=== PATIENT | female | born 1965 | race Caucasian/White ===

== ENCOUNTER 2016-12-26 09:52 | Inpatient (IN) ==
[2016-12-26 13:31] LABS: Basophils # 0.1 K/mcL (0.0-0.2); Basophils % 1.3 %; Eosinophils # 0.1 K/mcL (0.0-0.6); Eosinophils % 2.3 %; Hematocrit 25.1 % (35.3-44.9); Hemoglobin 7.9 g/dL (11.5-15.4); Immature Granulocytes % 1.3 % (0-4); Lymphocytes # 0.5 K/mcL (0.6-4.6); Lymphocytes % 12.9 %; Mean Corpuscular HGB Conc 31.5 g/dL (31.6-35.5); Mean Corpuscular Hemoglobin 35.7 pg (28.0-33.3); Mean Corpuscular Volume 113.6 fL (83.0-100.0); Mean Platelet Volume 11.6 fL (9.4-12.4); Monocytes # 0.3 K/mcL (0.0-1.3); Monocytes % 6.6 %; Platelet Count 168 K/mcL (140-400); Red Blood Count 2.21 M/mcL (3.82-4.97); Red Cell Distribution Width 17.7 % (11.5-14.5); Segmented Neutrophils % 75.6 %
[2016-12-26 13:43] LABS: Albumin 2.6 g/dL (3.5-5.0); Albumin/Globulin Ratio 0.5 (1.1-2.2); Bilirubin,Total 0.3 mg/dL (0.2-1.2); Calcium 8.4 mg/dL (8.6-10.8); Globulin 5.3 g/dL (2.4-3.5); Potassium 5.3 mEq/L (3.5-4.5); Total Protein 7.9 g/dL (6.0-8.3)
[2016-12-26 14:32] LABS: Basophilic Stippling 1+ (Not Present); Large Platelets Present (Not Present); Macrocytosis Present (Not Present); Platelet Estimate Normal (Normal)
[2016-12-26] MEDS ORDERED: Levofloxacin 750 MG/150 ML 750 MG/150 ML BAG IVPB ONE (18:51)
--- NOTE | 2016-12-26 21:16 | Emergency Department Note ---
Disposition Clinical Impression: Anemia Qualifiers: Anemia type: unspecified type Qualified Code(s): D64.9 - Anemia, unspecified Disposition: Admitted As Inpatient Referrals: Yesenia Parra MD [Primary Care Provider] - Forms: Work/School Release, ED Satisfaction Letter Time of Disposition: 21:20 General Adult HPI - General Chief complaint: ED General Medical Stated complaint: multiple complaints Time Seen by Provider: 12/26/16 11:18 Source: patient, family Limitations: other Nursing Notes Reviewed: Yes Vital Signs Reviewed: Yes - History of Present Illness HPI Narrative: 51-year-old female who presents with a history of MRDD, ESRD from dialysis. Prior to dialysis her hemoglobin was checked and she was found to be anemic. Dialysis reports her baseline hemoglobin is 10. Dialysis reports that she has had diarrhea, vomiting. No episodes of vomiting or diarrhea were noted here. Her vital signs are stable on arrival. Additionally was reported that she had hypotension at dialysis which subsequently resolved prior to arrival here today. Her mother reports no recent illness, sick or ill contacts, pain of any sort. They do report that her right jaw has been slightly more swollen than it is at baseline. Pain Scale: 0 - Related Data Home Medications Medication Instructions Recorded Confirmed Atorvastatin [Lipitor] 40 mg PO HS 08/09/15 12/26/16 B Complex W-C No.20/Folic Acid 1 mg PO DAILY 08/09/15 12/26/16 [Nephrocaps Softgel] L. Acidophilus/Pectin, [place] 1 each PO DAILY 08/09/15 12/26/16 [Acidophilus Probiotic Capsule] Levothyroxine [Synthroid] 100 mcg PO DAILY 08/09/15 12/26/16 Megestrol Acetate [Megace] 40 mg PO BID 08/09/15 08/09/15 Metoprolol XL (24 HR) Succ [Toprol 50 mg PO DAILY 08/09/15 12/26/16 XL] Omeprazole [PriLOSEC] 20 mg PO DAILY 08/09/15 12/26/16 Oxygen 2 l NS AD 08/09/15 12/26/16 Sevelamer HCl [Renagel] 800 mg PO TID 08/09/15 12/26/16 Sulfamethoxazole/Trimeth DS 1 each PO DAILY 08/09/15 12/26/16 [Bactrim Ds] Aspirin 81 mg PO DAILY 12/26/16 12/26/16 Diltiazem HCl 90 mg PO TID 12/26/16 12/26/16 Allergies Allergy/AdvReac Type Severity Reaction Status Date / Time No Known Allergies Allergy Verified 08/02/15 11:30 All systems ED: reviewed and negative except as stated. Past Medical History - Past Medical History Medical history: Reports: GERD Psychiatric history: Reports: other - Social History Smoking Status: Never smoker Smokeless Tobacco Status: No Alcohol use: Reports: none Drug use: Reports: none Physical Exam Alert, smiles with conversation TMs are clear bilaterally and extraocular muscle movements are normal mucous members are moist there is some prominence to the right submandibular region Lungs are clear but diminished bilaterally There is a holosystolic murmur present Abdomen is soft and nontender Extremities are well-perfused Patient has no focal neurological deficit - General Limitations: other General appearance: alert, in no apparent distress Course Vital Signs Temperature 97.6 F 12/26/16 09:54 Pulse Rate 93 12/26/16 09:54 Respiratory Rate 14 12/26/16 09:54 Blood Pressure 164/82 12/26/16 09:54 O2 Sat by Pulse Oximetry 95 12/26/16 09:54 Temperature 97.6 F 12/26/16 09:54 Pulse Rate 105 12/26/16 20:00 Respiratory Rate 16 12/26/16 20:00 Blood Pressure 161/88 12/26/16 20:00 O2 Sat by Pulse Oximetry 95 12/26/16 20:00 Oxygen Delivery Oxygen Delivery Nasal Cannula Medical Decision Making - [facility] Narrative Medical decision making narrative: 51-year-old female with concerning findings of reported hypotension at dialysis. I did discuss the case with the on-call insemination worker who recommended the patient be admitted for anemia, need for dialysis, hyperkalemia. Mildly hyperkalemic here in the department. Vital signs were stable here. She does have evidence on CT of left lower lobe infiltrate. There is no evidence of sepsis at this time. I would initiate therapy with Levaquin given her reported hypotension. This can be discontinued at the discretion of the hospitalist team. Additionally I will consult the dialysis for evaluation the patient's dialysis needs. The patient will be admitted for dialysis, evaluation of hyperkalemia, reported hypotension, findings of colitis on CT. Admitted in stable condition, discussed case with Dr. Rock with the hospitalist team.Guiac negative. - Lab Data Result diagrams: 12/26/16 13:00 12/26/16 13:00 Lab Results 12/26/16 12/26/16 12/26/16 Range/Units 13:00 13:00 14:20 WBC 4.0 L (4.3-11.1) K/mcL RBC 2.21 L (3.82-4.97) M/mcL Hgb 7.9 L (11.5-15.4) g/dL Hct 25.1 L (35.3-44.9) % MCV 113.6 H (83.0-100.0) fL MCH 35.7 H (28.0-33.3) pg MCHC 31.5 L (31.6-35.5) g/dL RDW 17.7 H (11.5-14.5) % Plt Count 168 (140-400) K/mcL MPV 11.6 (9.4-12.4) fL Immature Gran % 1.3 (0-4) % Seg Neutrophils % 75.6 % Lymphocytes % 12.9 % Monocytes % 6.6 % Eosinophils % 2.3 % Basophils % 1.3 % Neutrophils # 3.0 (1.6-8.9) K/mcL Lymphocytes # 0.5 L (0.6-4.6) K/mcL Monocytes # 0.3 (0.0-1.3) K/mcL Eosinophils # 0.1 (0.0-0.6) K/mcL Basophils # 0.1 (0.0-0.2) K/mcL Platelet Estimate Normal (Normal) Large Platelets Present A (Not Present) Basophilic Stippling 1+ A (Not Present) Macrocytosis Present A (Not Present) Sodium 141 (136-145) mEq/L Potassium 5.3 H (3.5-4.5) mEq/L Chloride 103 (98-109) mEq/L Carbon Dioxide 28 (19-29) mEq/L BUN 52 H (7-20) mg/dL Creatinine 5.72 H (0.57-1.11) mg/dL Est GFR ( Amer) 10 L (> 60) Est GFR (Non-Af Amer) 8 L (> 60) BUN/Creatinine Ratio 9 (6-26) Glucose 88 (70-99) mg/dL Calculated Osmolality 305 H (280-300) Lactic Acid (0.5-2.2) mmol/L Calcium 8.4 L (8.6-10.8) mg/dL Total Bilirubin 0.3 (0.2-1.2) mg/dL AST 18 (5-34) Units/L ALT 9 (0-55) Units/L Alkaline Phosphatase 82 (38-126) Units/L Serum Total Protein 7.9 (6.0-8.3) g/dL Albumin 2.6 L (3.5-5.0) g/dL Globulin 5.3 H (2.4-3.5) g/dL Albumin/Globulin Ratio 0.5 L (1.1-2.2) Stool Occult Blood Negative (Negative) Blood Type Antibody Screen 12/26/16 12/26/16 Range/Units 17:20 17:20 WBC (4.3-11.1) K/mcL RBC (3.82-4.97) M/mcL Hgb (11.5-15.4) g/dL Hct (35.3-44.9) % MCV (83.0-100.0) fL MCH (28.0-33.3) pg MCHC (31.6-35.5) g/dL RDW (11.5-14.5) % Plt Count (140-400) K/mcL MPV (9.4-12.4) fL Immature Gran % (0-4) % Seg Neutrophils % % Lymphocytes % % Monocytes % % Eosinophils % % Basophils % % Neutrophils # (1.6-8.9) K/mcL Lymphocytes # (0.6-4.6) K/mcL Monocytes # (0.0-1.3) K/mcL Eosinophils # (0.0-0.6) K/mcL Basophils # (0.0-0.2) K/mcL Platelet Estimate (Normal) Large Platelets (Not Present) Basophilic Stippling (Not Present) Macrocytosis (Not Present) Sodium (136-145) mEq/L Potassium (3.5-4.5) mEq/L Chloride (98-109) mEq/L Carbon Dioxide (19-29) mEq/L BUN (7-20) mg/dL Creatinine (0.57-1.11) mg/dL Est GFR ( Amer) (> 60) Est GFR (Non-Af Amer) (> 60) BUN/Creatinine Ratio (6-26) Glucose (70-99) mg/dL Calculated Osmolality (280-300) Lactic Acid 0.6 (0.5-2.2) mmol/L Calcium (8.6-10.8) mg/dL Total Bilirubin (0.2-1.2) mg/dL AST (5-34) Units/L ALT (0-55) Units/L Alkaline Phosphatase (38-126) Units/L Serum Total Protein (6.0-8.3) g/dL Albumin (3.5-5.0) g/dL Globulin (2.4-3.5) g/dL Albumin/Globulin Ratio (1.1-2.2) Stool Occult Blood (Negative) Blood Type A POSITIVE Antibody Screen NEGATIVE
[2016-12-26] MEDS ORDERED: Naloxone 0.4 MG/ML INJ IVP PRN (23:36)
[2016-12-26] MEDS ORDERED: Acetaminophen 325 MG TABLET PO PRN (23:36)
[2016-12-26] MEDS ORDERED: Ondansetron 4 MG/2 ML VIAL IVP PRN (23:36)
[2016-12-26] MEDS ORDERED: *HR* OxyCODONE Immed Rel 5 MG TABLET PO PRN (23:36)
[2016-12-26] MEDS ORDERED: *HR* Morphine 2 MG/ML SYRINGE IVP PRN (23:36)
[2016-12-26] MEDS ORDERED: NON-FORMULARY MEDICATION 1 EACH EACH (Oxygen [Oxygen] 2 L) NS SCH (23:45)
--- NOTE | 2016-12-26 23:49 | Internal Med History&Physical ---
Date of Encounter: 12/26/16 Time of Encounter: 23:30 Assessment and Plan (1) ESRD (end stage renal disease) on dialysis Status: Chronic . (2) Hypertensive CKD, ESRD on dialysis Status: Chronic . (3) Anemia in chronic kidney disease (CKD) Status: Chronic . 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 (5) Cognitive and neurobehavioral dysfunction Status: Chronic . (6) Hyperkalemia, diminished renal excretion Status: Acute . (7) Hyperosmolality Status: Acute . (8) Hypoalbuminemia due to protein-calorie malnutrition Status: Chronic . (9) Vitamin deficiency Status: Chronic . (10) Iron deficiency Status: Chronic . Internal Medicine - H&P: HPI Chief complaint: Nausea vomiting diarrhea Admitted From: Emergency Dept Plans for Post Hospital Care: Home History of present illness: Ms. Sams is a 51 year old female history significant for Down's syndrome/ MRDD, ESRD HD dependent, P atrial fib, hypertension, dyslipidemia, GERD, hypothyroidism, Traci's c-ANCA vasulitis, chronic interstitial lung dis, chronic respiratory failure oxygen dependent, anemia of chronic disease, H/O C- diff colitis, nonsmoker The patient was visited and interviewed and examined. The patient is admitted to [facility] via the emergency department which presents in the company of family with concerns pertaining to a low hemoglobin measurement found prior to scheduled dialysis run. Patient has end-stage renal disease and receives hemodialysis 3 times weekly. Her baseline hemoglobin was reportedly at 10 prior to today's evaluation. Reported to be at 7.9. The patient had been experiencing episodes of diarrhea and nausea vomiting as well as transient hypotension while on dialysis which resolved prior to arrival in the ED as stated symptoms of enteritis. Mother reported no recent travel or sick or ill contacts. Patient denied any pain or concerns family did nothing to attention apparent swelling about the right jaw area which was new. Which related to a prominence of the right submandibular region. Findings in the ED: Vital signs temperature 97.6 pulse 93-105 respiration 14-16 BP 160-164/82-88. O2 saturation pulse oximetry 95% on 2 L per nasal cannula. WBC 4.0 hemoglobin 7.9 hematocrit 25.1. MCV 113.6 MCH 35.7. RDW 17.7. Platelets 169 pounds. Differential normal. Metabolic panel notes potassium 5.3 BUN 52 creatinine 5.72 GFR 8. Glucose 88, osmolality 305. Calcium 8.4. Hepatic function normal. Albumin 2.6 total 7.9. Lactic acid 0.6. CT soft tissue neck no obvious neck mass detected. Bilateral mastoid effusion with opacification of the right middle ear seen. Opacification of the left maxillary antrum. Groundglass infiltrates within both lung apices with partially visualized left lower lobe consolidation. Chronic superior endplate fracture C4 with a 4 mm anterolisthesis of C3 on C4. Generalized anasarca. Degenerative changes of the spine. CT of abdomen and pelvis demonstrated findings suggestive of pulmonary edema. Small pleural effusions with lower lobe atelectasis. Mild circumferential wall thickening of the cecum. Possible underdistention versus mild colitis. Small ascites. Severe bilateral renal atrophy. Normal appendix. No dilated loops of bowel. No bowel obstruction. Small amount of pelvic ascites. No pelvic masses adenopathy or fluid collection. Retroperitoneum benign. Soft and osseous structures tissues benign. Preliminary impression suggests presence of the cytopenia with a leukopenia and macrocytic hyperchromic anemia. There is no record of any obvious bleeding events. Hemoccult stool reportedly negative. An etiology has yet to be elucidated beyond the chronic disease due to end-stage renal disease and her history of poor oral intake may portend to a nutritional component as well.. Chemistries demonstrated end-stage renal disease stage V which is hemodialysis dependent but in spite of today's dialysis potassium returned elevated at 5.3. CT of the neck does disclose evidence for bilateral mastoiditis, right otitis media, left maxillary sinusitis and left lower lobe community-acquired pneumonitis. CT abdomen and pelvis suggests mild colitis of the cecum and the patient does have a prior history of C. difficile colitis concerns. Given current findings and patient's significant comorbidities she is at further risk for acute decline and morbidity with this presentation. Workup and treatment will proceed comprehensively. Cumulative laboratory and radiographic data base was reviewed, considered and discussed. Pertinent ancillary medical records including ECW and PCI documentation was reviewed and considered. Given the patient's presenting concerns, past medical history, clinical findings and symptoms, she is admitted at this time will undergo further evaluation and disposition. Orders were written as per the computerized physician border inspector system.......................................................................... .................... Consultative opinions will be sought as clinical circumstances justify. Initial consultative request submitted to dialysis services/nephrology and gastroenterology. Pain management needs will be addressed. Laboratory and radiographic data base will be updated as appropriate. Studies include: Cultures blood urine and sputum, c diff toxin, stool c/s, cardiac injury panel, BNP, CPK, cortisol, UA, metabolic and hematologic panel, magnesium, phosphorus, ionized calcium, thyroid panel, lipid profile, A1c, C-pep , CRP, sed rate, respiratory infection profile, respiratory virus panel, blood gas, lactic acid, iron studies, B12, MMA, folate, ferritin, hemoccult, PT/INR/ APTT, type/screen, serologies, etc. Precautions: Aspiration, fall, delirium protocol/surveillance initiated. Telemetry with continuous hemodynamic monitoring and pulse oximetry initiated. Orthostatic vital signs. Empiric antibiotic coverage: Intravenous Zosyn and Levaquin pending culture data. Transfusion: 2 units packed red blood cells. Goal to maintain a hemoglobin of greater than 8.5. Special studies: CT chest/abd-pelvis/soft tissue neck, chest x-ray, telemetry, EKG,echocardiogram. Pulmonary toilet: Incentive spirometry, aerosol bronchodilator, mucolytic, antitussive, supplemental oxygen. Corticosteroid therapyPRN. CPAP/BiPAP supplemental oxygen delivery. Aerosol Mucomyst therapy. Fluid and electrolyte repletion efforts will proceed. Careful attention to fluid balance and renal recovery will be emphasized. Avoidance of nephrotoxic exposure and adverse drug drug interaction in the setting of impaired renal function will be monitored closely. Acute coronary syndrome protocol/surveillance initiated. DVT and PUD prophylaxis initiated: PPI therapy, intermittent pneumatic cuffs/ TEDs. Subcutaneous heparin/Lovenox was held due to acute blood loss anemia. Early ambulation will be encouraged. Immunization updates recommended. Influenza and pneumococcal vaccinations as part of ongoing preventative healthcare recommendations strongly recommended. Smoking cessation counseling briefly addressed. Patient is a nonsmoker. Advanced care directive discussion briefly addressed. Patient does not declare any healthcare restrictions at this time. Cardiovascular risk appraisal and cardiovascular risk reduction efforts will be emphasized. Physical and occupational therapy may be consulted to evaluate patient's functional capacity and progress mobility if her circumstances justify. Nutrition/dietary education counseling may be considered as circumstances justify. Renal diet. Supplemental diet options. Outpatient medication schedules will be reviewed, confirmed and facilitated as appropriate. Reconciliation of home treatments including adjustments, substitutions and reintroduction into the treatment regimen will address necessary maintenance therapies for chronic pre-existing medical conditions. Plan of care has been reviewed and discussed in detail with the patient. Questions addressed. Hospital course will be dependent upon clinical findings, treatment response and potential consultative interventions. Patient is at risk for further acute clinical decline and morbidity due to her presenting chief complaints, findings and comorbid conditions. Condition is serious. Prognosis is guarded. CODE STATUS is full. Past Med Surg Social Fam HX - Past Medical History Source: old records reviewed Medical history: arthritis, atrial fibrillation, COPD, dialysis, GERD, hyperlipidemia, hypertension, osteoporosis, renal disease, thyroid disease, other Psychiatric history: other - Past Surgical History Surgical History: sinus surgery (Ear surgery. Tonsillectomy adenoidectomy.), other, vascular surgery (Left upper arm AV fistula shunt creation. Left AV shunt thrombectomy and interposition graft revision. Left AV shunt thrombectomy.) - Social History Smoking Status: Never smoker Smokeless Tobacco Status: No Alcohol use: none Drug use: none Occupational status: disabled Current living situation: With Family Activity Level: Independent ambulation, Mostly sedentary Recent Out of Country Travel Within the Last 8 Weeks: No Exposure or Possible Exposure to Illness During Travel: No Internal Medicine - H&P: Meds Atorvastatin [Lipitor] 40 mg PO HS 08/09/15 [History] B Complex W-C No.20/Folic Acid [Nephrocaps Softgel] 1 mg PO DAILY 08/09/15 [ History] L. Acidophilus/Pectin, [place] [Acidophilus Probiotic Capsule] 1 each PO DAILY [History] Megestrol Acetate [Megace] 40 mg PO BID 08/09/15 [History] Metoprolol XL (24 HR) Succ [Toprol XL] 50 mg PO DAILY 08/09/15 [History] Omeprazole [PriLOSEC] 20 mg PO DAILY 08/09/15 [History] Oxygen 2 l NS AD 08/09/15 [History] Sevelamer HCl [Renagel] 800 mg PO TID 08/09/15 [History] Aspirin 81 mg PO DAILY 12/26/16 [History] Diltiazem HCl 90 mg PO TID 12/26/16 [History] Fluconazole [Diflucan] 200 mg PO DAILY #14 udc 12/30/16 [Rx] Levothyroxine [Synthroid] 125 mcg PO DAILY #30 tablet 12/30/16 [Rx] Allergies No Known Allergies Allergy (Verified 08/02/15 11:30) ROS unobtainable: due to mental status All Systems PM: A 10-system review of systems was performed and is negative for pertinent findings except as documented above in the HPI. - Constitutional Constitutional: as per HPI - EENT Eyes: as per HPI Ears: as per HPI Nose, mouth and throat: as per HPI - Cardiovascular Cardiovascular ROS IM: as per HPI - Respiratory Respiratory: as per HPI - Gastrointestinal Gastrointestinal: as per HPI - Genitourinary Genitourinary: as per HPI - Musculoskeletal Musculoskeletal ROS IM: as per HPI - Integumentary Integumentary IM: as per HPI - Neurological Neurological ROS: as per HPI - Psychiatric Psychiatric: as per HPI - Endocrine Endocrine IM: as per HPI - Hematologic/Lymphatic Hematologic/Lymphatic: as per HPI - Allergic/Immunologic Allergic/Immunologic: as per HPI - Constitutional Vitals: Temp Pulse Resp BP Pulse Ox 98.0 F 101 16 183/76 93 L 12/26/16 22:45 12/26/16 22:45 12/26/16 22:45 12/26/16 22:45 12/26/16 22:56 General appearance: Present: mild distress, A&O X 3, underweight, answers questions appropriately - Head Head exam: Present: atraumatic, normocephalic - Eye Eye exam: Present: EOMI, PERRL, conjuntiva pink, sclera anicteric Pupils: Present: normal accommodation, PERRL - ENT ENT exam: Present: mucous membranes moist, normal oropharynx - Neck Neck exam general surgery: Present: full ROM, supple, trachea midline. Absent: lymphadenopathy - Respiratory Respiratory exam: Present: decreased breath sounds, CTAB. Absent: accessory muscle use, rales, rhonchi, wheezes - Cardiovascular Cardiovascular exam: Present: distant heart sounds, RRR, +S1, +S2. Absent: diastolic murmur, gallop, rubs, systolic murmur - GI/Abdominal GI/Abdominal exam: Present: diminished bowel sounds, distended, soft, tenderness , no peritoneal signs - Extremities Exam Extremities exam: Present: full ROM, warm, radial pulses palpable and symetrical. Absent: calf tenderness, cyanotic, pedal edema - Neurological Exam Neurological exam: Present: alert, altered, CN II-XII intact, oriented X3, no focal deficits. Absent: pronater drift, facial droop, speech deficit - Psychiatric Psychiatric exam: Present: anxious, flat affect - Skin Skin exam: Present: dry, intact, warm. Absent: petechiae, rash, urticaria, vesicles Internal Med - H&P Results - Labs CBC & Chem 7: 12/30/16 05:57 12/29/16 06:17 - Impressions Vital Signs Temp Pulse Resp BP Pulse Ox 12/26/16 22:56 93 L 12/26/16 22:45 98.0 F 101 16 183/76 93 L 12/26/16 22:15 16 162/104 12/26/16 21:30 101 16 162/104 94 L 12/26/16 21:00 105 16 161/88 95 12/26/16 20:00 105 16 161/88 95 12/26/16 19:00 95 16 174/103 93 L 12/26/16 18:00 95 16 174/85 97 12/26/16 16:30 93 16 174/85 95 12/26/16 15:30 93 16 170/83 97 12/26/16 14:30 94 16 177/86 96 12/26/16 14:00 84 16 166/78 96 12/26/16 13:30 82 16 161/78 96 12/26/16 13:00 82 16 164/78 96 12/26/16 12:30 82 16 166/78 97 12/26/16 12:00 81 16 158/78 96 12/26/16 11:30 81 16 158/80 96 12/26/16 10:39 81 16 157/78 97 12/26/16 10:00 88 16 166/85 99 12/26/16 09:57 97 12/26/16 09:54 97.6 F 93 14 164/82 95 Intake and Output 12/26/16 12/26/16 12/26/16 07:59 15:59 23:59 Other: Weight 41.73 kg 42.3 kg Patient Weight 12/26/16 23:59 Weight 42.3 kg Short CBC 12/26/16 Range/Units 13:00 WBC 4.0 L (4.3-11.1) K/mcL Hgb 7.9 L (11.5-15.4) g/dL Hct 25.1 L (35.3-44.9) % Plt Count 168 (140-400) K/mcL Neutrophils # 3.0 (1.6-8.9) K/mcL BMP 12/26/16 Range/Units 13:00 Sodium 141 (136-145) mEq/L Potassium 5.3 H (3.5-4.5) mEq/L Chloride 103 (98-109) mEq/L Carbon Dioxide 28 (19-29) mEq/L BUN 52 H (7-20) mg/dL Creatinine 5.72 H (0.57-1.11) mg/dL Glucose 88 (70-99) mg/dL Calcium 8.4 L (8.6-10.8) mg/dL Liver Function 12/26/16 Range/Units 13:00 Total Bilirubin 0.3 (0.2-1.2) mg/dL AST 18 (5-34) Units/L ALT 9 (0-55) Units/L Alkaline Phosphatase 82 (38-126) Units/L Albumin 2.6 L (3.5-5.0) g/dL Abnormal lab results WBC 4.0 K/mcL (4.3-11.1) L 12/26/16 13:00 RBC 2.21 M/mcL (3.82-4.97) L 12/26/16 13:00 Hgb 7.9 g/dL (11.5-15.4) L 12/26/16 13:00 Hct 25.1 % (35.3-44.9) L 12/26/16 13:00 MCV 113.6 fL (83.0-100.0) H 12/26/16 13:00 MCH 35.7 pg (28.0-33.3) H 12/26/16 13:00 MCHC 31.5 g/dL (31.6-35.5) L 12/26/16 13:00 RDW 17.7 % (11.5-14.5) H 12/26/16 13:00 Lymphocytes # 0.5 K/mcL (0.6-4.6) L 12/26/16 13:00 Large Platelets Present (Not Present) A 12/26/16 13:00 Basophilic Stippling 1+ (Not Present) A 12/26/16 13:00 Macrocytosis Present (Not Present) A 12/26/16 13:00 Potassium 5.3 mEq/L (3.5-4.5) H 12/26/16 13:00 BUN 52 mg/dL (7-20) H 12/26/16 13:00 Creatinine 5.72 mg/dL (0.57-1.11) H 12/26/16 13:00 Est GFR ( Amer) 10 (> 60) L 12/26/16 13:00 Est GFR (Non-Af Amer) 8 (> 60) L 12/26/16 13:00 Calculated Osmolality 305 (280-300) H 12/26/16 13:00 Calcium 8.4 mg/dL (8.6-10.8) L 12/26/16 13:00 Albumin 2.6 g/dL (3.5-5.0) L 12/26/16 13:00 Globulin 5.3 g/dL (2.4-3.5) H 12/26/16 13:00 Albumin/Globulin Ratio 0.5 (1.1-2.2) L 12/26/16 13:00 Allergies Allergy/AdvReac Type Severity Reaction Status Date / Time No Known Allergies Allergy Verified 08/02/15 11:30 Laboratory Results WBC 4.0 K/mcL (4.3-11.1) L 12/26/16 13:00 RBC 2.21 M/mcL (3.82-4.97) L 12/26/16 13:00 Hgb 7.9 g/dL (11.5-15.4) L 12/26/16 13:00 Hct 25.1 % (35.3-44.9) L 12/26/16 13:00 MCV 113.6 fL (83.0-100.0) H 12/26/16 13:00 MCH 35.7 pg (28.0-33.3) H 12/26/16 13:00 MCHC 31.5 g/dL (31.6-35.5) L 12/26/16 13:00 RDW 17.7 % (11.5-14.5) H 12/26/16 13:00 Plt Count 168 K/mcL (140-400) 12/26/16 13:00 MPV 11.6 fL (9.4-12.4) 12/26/16 13:00 Immature Gran % 1.3 % (0-4) 12/26/16 13:00 Seg Neutrophils % 75.6 % 12/26/16 13:00 Lymphocytes % 12.9 % 12/26/16 13:00 Monocytes % 6.6 % 12/26/16 13:00 Eosinophils % 2.3 % 12/26/16 13:00 Basophils % 1.3 % 12/26/16 13:00 Neutrophils # 3.0 K/mcL (1.6-8.9) 12/26/16 13:00 Lymphocytes # 0.5 K/mcL (0.6-4.6) L 12/26/16 13:00 Monocytes # 0.3 K/mcL (0.0-1.3) 12/26/16 13:00 Eosinophils # 0.1 K/mcL (0.0-0.6) 12/26/16 13:00 Basophils # 0.1 K/mcL (0.0-0.2) 12/26/16 13:00 Platelet Estimate Normal (Normal) 12/26/16 13:00 Large Platelets Present (Not Present) A 12/26/16 13:00 Basophilic Stippling 1+ (Not Present) A 12/26/16 13:00 Macrocytosis Present (Not Present) A 12/26/16 13:00 Sodium 141 mEq/L (136-145) 12/26/16 13:00 Potassium 5.3 mEq/L (3.5-4.5) H 12/26/16 13:00 Chloride 103 mEq/L (98-109) 12/26/16 13:00 Carbon Dioxide 28 mEq/L (19-29) 12/26/16 13:00 BUN 52 mg/dL (7-20) H 12/26/16 13:00 Creatinine 5.72 mg/dL (0.57-1.11) H 12/26/16 13:00 Est GFR ( Amer) 10 (> 60) L 12/26/16 13:00 Est GFR (Non-Af Amer) 8 (> 60) L 12/26/16 13:00 BUN/Creatinine Ratio 9 (6-26) 12/26/16 13:00 Glucose 88 mg/dL (70-99) 12/26/16 13:00 Calculated Osmolality 305 (280-300) H 12/26/16 13:00 Lactic Acid 0.6 mmol/L (0.5-2.2) 12/26/16 17:20 Calcium 8.4 mg/dL (8.6-10.8) L 12/26/16 13:00 Total Bilirubin 0.3 mg/dL (0.2-1.2) 12/26/16 13:00 AST 18 Units/L (5-34) 12/26/16 13:00 ALT 9 Units/L (0-55) 12/26/16 13:00 Alkaline Phosphatase 82 Units/L (38-126) 12/26/16 13:00 Serum Total Protein 7.9 g/dL (6.0-8.3) 12/26/16 13:00 Albumin 2.6 g/dL (3.5-5.0) L 12/26/16 13:00 Globulin 5.3 g/dL (2.4-3.5) H 12/26/16 13:00 Albumin/Globulin Ratio 0.5 (1.1-2.2) L 12/26/16 13:00 Stool Occult Blood Negative (Negative) 12/26/16 14:20 Blood Type A POSITIVE 12/26/16 17:20 Antibody Screen NEGATIVE 12/26/16 17:20 Impressions Abdomen/Pelvis CT 12/26/16 16:24 IMPRESSION: 1. Findings suggesting pulmonary edema. Small pleural effusions with lower lobe atelectasis. 2. Mild circumferential wall thickening in the cecum. This could be due to underdistention or mild colitis. Follow-up should be considered. 3. Small amount of ascites. D/ / 12/26/2016 18:39:45 Garry Sharma MD / [email or web address] Interpreting Provider: Garry Sharma MD Soft Tissue Neck CT 12/26/16 16:24 IMPRESSION: Motion limited exam. No obvious neck mass detected. Bilateral mastoid effusions and opacification of the left middle ear. Ground-glass infiltrates within both lung bases with a partially visualized left lower lobe consolidation. Chronic superior endplate fracture of C4 with 4 mm anterolisthesis of C3 on C4. D/ / Rudy Lincoln MD / Rudy Lincoln MD Interpreting Provider: Rudy Lincoln MD
[2016-12-26] MEDS ORDERED: Albuterol 2.5 MG/3 ML NEBULIZER IH PRN (23:55)
[2016-12-27] MEDS: Piperacillin/Tazobactam 3.375 GM in D5% in Water (Mini-Bag+) 100 ML IVPB SCH ×3 (00:22→23:30)
[2016-12-27] MEDS: Ipratropium/Albuterol Neb 3 ML IH SCH ×4 (04:39→22:33)
[2016-12-27 06:31] LABS: Hematocrit 25.2 % (35.3-44.9); Hemoglobin 7.9 g/dL (11.5-15.4); Mean Corpuscular HGB Conc 31.3 g/dL (31.6-35.5); Mean Corpuscular Hemoglobin 36.2 pg (28.0-33.3); Mean Corpuscular Volume 115.6 fL (83.0-100.0); Mean Platelet Volume 11.4 fL (9.4-12.4); Platelet Count 161 K/mcL (140-400); Red Blood Count 2.18 M/mcL (3.82-4.97)
[2016-12-27 06:45] LABS: Albumin 2.6 g/dL (3.5-5.0); Albumin/Globulin Ratio 0.5 (1.1-2.2); Bilirubin,Total 0.3 mg/dL (0.2-1.2); Calcium 8.6 mg/dL (8.6-10.8); Globulin 5.2 g/dL (2.4-3.5); Phosphorous 4.5 mg/dL (2.3-4.7); Potassium 5.7 mEq/L (3.5-4.5); Total Protein 7.8 g/dL (6.0-8.3)
[2016-12-27 06:55] LABS: Estimated Average Glucose < 68 mg/dl; Hemoglobin A1C <= 3.9 %
[2016-12-27 07:09] LABS: Thyroid Stimulating Hormone 35.703 mcIU/mL (0.350-4.840)
[2016-12-27] MEDS: Aspirin 81 MG TAB.CHEW PO SCH (08:10)
[2016-12-27] MEDS: Metoprolol XL (24 HR) Succ 50 MG TAB.ER.24H PO SCH (08:11)
[2016-12-27] MEDS: Lactobacillus 1 EACH CAP.SPRINK PO SCH (08:11)
[2016-12-27] MEDS: Renal Vitamin 1 MG CAPSULE PO SCH (08:11)
[2016-12-27] MEDS: *HR* Promethazine 25 MG/ML VIAL IVP PRN (08:12)
[2016-12-27] MEDS: SEVELAMER HCL 800 MG PO SCH ×3 (08:34→21:17)
[2016-12-27] MEDS ORDERED: Sulfamethoxazole/Trimeth DS 1 EACH TABLET PO SCH (09:00)
--- NOTE | 2016-12-27 09:14 | Internal Med Progress Note ---
Date of Encounter: 12/27/16 Time of Encounter: 08:25 - Assessment and plan (1) Colitis, acute Current Visit: Yes Status: Suspected Assessment and plan: Patient has findings suggestive of mild colitis in the cecal region per CT scan. No leukocytosis. Patient does have some mild abdominal pain. No diarrhea or constipation. For now continue antibiotics. Consider repeat CT scan tomorrow. (2) Anemia in chronic kidney disease (CKD) Current Visit: Yes Status: Chronic Assessment and plan: Chronic from end-stage renal disease. Patient will receive erythropoietin with hemodialysis. Monitor blood counts. (3) ESRD (end stage renal disease) on dialysis Current Visit: Yes Status: Chronic Assessment and plan: Consulted nephrology. 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 Complains of some mild abdominal pain. No constipation. Not having chest pain at this time. No shortness of breath. - Constitutional Vitals: Temp Pulse Resp BP Pulse Ox 98.2 F 100 16 132/82 91 L 12/27/16 07:46 12/27/16 07:46 12/27/16 07:46 12/27/16 07:46 12/27/16 07:46 General appearance: Present: cooperative, A&O X 2, pleasant, answers questions appropriately - Respiratory Respiratory exam: Present: CTAB. Absent: accessory muscle use, rales, rhonchi, wheezes - Cardiovascular Cardiovascular exam: Present: RRR, +S1, +S2. Absent: diastolic murmur, gallop, rubs, systolic murmur - GI/Abdominal GI/Abdominal exam: Present: normal bowel sounds, soft, tenderness (Mild right lower quadrant), no peritoneal signs. Absent: distended - Extremities Exam Extremities exam: Present: warm, radial pulses palpable and symetrical. Absent : calf tenderness, cyanotic, pedal edema - Neurological Exam Neurological exam: Present: alert, CN II-XII intact, no focal deficits. Absent : facial droop, speech deficit - Skin Skin exam: Present: dry, intact Internal Medicine: Result - Labs CBC & Chem 7: 12/27/16 06:10 12/27/16 06:10 Labs: Short CBC 12/27/16 Range/Units 06:10 WBC 4.4 (4.3-11.1) K/mcL Hgb 7.9 L (11.5-15.4) g/dL Hct 25.2 L (35.3-44.9) % Plt Count 161 (140-400) K/mcL BMP 12/27/16 06:10 Sodium 138 Potassium 5.7 H Chloride 102 Carbon Dioxide 23 BUN 57 H Creatinine 6.60 H Glucose 77 Calcium 8.6 Liver Function 12/27/16 Range/Units 06:10 Total Bilirubin 0.3 (0.2-1.2) mg/dL AST 19 (5-34) Units/L ALT 11 (0-55) Units/L Alkaline Phosphatase 81 (38-126) Units/L Albumin 2.6 L (3.5-5.0) g/dL - VTE Documentation of Mechanical Device: Graduated compression elastic hosiery Consult Discharge Plan - Plan Referrals: Yesenia Parra MD [Primary Care Provider] - - Attending Attestation This document has been at least partially created by [email or web address] recognition technology by Dr. Suero. Errors in grammar, wording or other phrases may exist. If errors are found after the documentation is signed, they will be addressed individually in the addendum section of this document when appropriate.
--- NOTE | 2016-12-27 12:52 | Nephrology Consult Note ---
Date of Encounter: 12/27/16 Time of Encounter: 11:25 Assessment and Plan (1) ESRD (end stage renal disease) on dialysis Current Visit: Yes Status: Chronic LLL atalectasis, mild colitis. Guiac neg, Hgb7.9 ESRD on dialysis, will do HD today, orders given. History of Present Illness - Reason for Consult end stage renal disease - History of Present Illness Ms. Sams is a 51 year old female with ESRD who dialyzes at [facility]. Last dialysis this past Saturday. Other PMH- MRDD, GERD. Ms. Escudero was sent to ER from Dialysis unit with Hgb 7.6, usually runs between 10-11. Right facial and neck swelling and had been having vomiting and diarrhea though mother denies this. The mother states patient has been short of breath lately and noted to be mouth breathing. CT neck negative for mass, CT Abd/Pelvis suggestive of pulm edema, small pleural effusions with LLL atalectasis and mild colitis. Hgb 7.9. Past Med Surg Social Fam HX - Past Medical History Medical history: arthritis, dialysis, GERD, hypertension, renal disease, other Psychiatric history: other - Past Surgical History Surgical History: other, vascular surgery - Social History Smoking Status: Never smoker Smokeless Tobacco Status: No Alcohol use: none Drug use: none Medications and Allergies Atorvastatin [Lipitor] 40 mg PO HS 08/09/15 [History] B Complex W-C No.20/Folic Acid [Nephrocaps Softgel] 1 mg PO DAILY 08/09/15 [ History] L. Acidophilus/Pectin, Levering [Acidophilus Probiotic Capsule] 1 each PO DAILY [History] Levothyroxine [Synthroid] 100 mcg PO DAILY 08/09/15 [History] Megestrol Acetate [Megace] 40 mg PO BID 08/09/15 [History] Metoprolol XL (24 HR) Succ [Toprol XL] 50 mg PO DAILY 08/09/15 [History] Omeprazole [PriLOSEC] 20 mg PO DAILY 08/09/15 [History] Oxygen 2 l NS AD 08/09/15 [History] Sevelamer HCl [Renagel] 800 mg PO TID 08/09/15 [History] Sulfamethoxazole/Trimeth DS [Bactrim Ds] 1 each PO DAILY 08/09/15 [History] Aspirin 81 mg PO DAILY 12/26/16 [History] Diltiazem HCl 90 mg PO TID 12/26/16 [History] Allergies No Known Allergies Allergy (Verified 08/02/15 11:30) Review of Systems All Systems: reviewed and no additional remarkable complaints except as stated Exam - Vital Signs Vital signs: Initial Vital Signs Temp Pulse Resp BP Pulse Ox 97.6 F 93 14 164/82 95 12/26/16 09:54 12/26/16 09:54 12/26/16 09:54 12/26/16 09:54 12/26/16 09:54 Vital Signs - Last 8 Hours Temp Pulse Resp BP Pulse Ox 12/27/16 11:30 98.5 F 85 16 154/76 92 L 12/27/16 11:03 16 92 L 12/27/16 07:46 98.2 F 100 16 132/82 91 L 12/27/16 04:41 97.9 F 88 16 172/81 100 Intake and Output 12/26/16 12/27/16 12/27/16 23:59 07:59 15:59 Intake Total 0 / 0 Output Total 0 / 0 Balance 0 / 0 Intake: Oral 0 / 0 Output: Urine 0 / 0 Other: Stool Size Moderate Stool Consistency soft Stool Characteristics Normal for Patient Stool Color Brown # Bowel Movements 1 # Bowel Movement Diapers 1 Weight 42.3 kg Results - Lab Results 12/27/16 06:10 12/27/16 06:10 Most recent lab results Calcium 8.6 mg/dL (8.6-10.8) 12/27/16 06:10 Phosphorus 4.5 mg/dL (2.3-4.7) 12/27/16 06:10 Magnesium 2.0 mg/dL (1.6-2.6) 12/27/16 06:10 Consult Discharge Plan - Plan Referrals: Yesenia Parra MD [Primary Care Provider] -
[2016-12-27] MEDS ORDERED: 0.9 % Sodium Chloride 250 ML IV PRN (13:01)
[2016-12-27] MEDS ORDERED: Levofloxacin 750 MG/150 ML 750 MG/150 ML BAG IVPB SCH (23:45)
[2016-12-28 01:17] LABS: Basophils % 0.5 %; Mean Corpuscular Hemoglobin 36.2 pg (28.0-33.3); Red Blood Count 1.49 M/mcL (3.82-4.97)
[2016-12-28 01:18] LABS: Eosinophils # 0.1 K/mcL (0.0-0.6); Eosinophils % 2.9 %; Hematocrit 17.3 % (35.3-44.9); Immature Granulocytes % 1.4 % (0-4); Lymphocytes # 0.8 K/mcL (0.6-4.6); Lymphocytes % 18.7 %; Mean Corpuscular HGB Conc 31.2 g/dL (31.6-35.5); Mean Corpuscular Volume 116.1 fL (83.0-100.0); Mean Platelet Volume 11.5 fL (9.4-12.4); Monocytes # 0.3 K/mcL (0.0-1.3); Monocytes % 7.7 %; Neutrophils # 2.9 K/mcL (1.6-8.9); Platelet Count 134 K/mcL (140-400); Red Cell Distribution Width 18.8 % (11.5-14.5); Segmented Neutrophils % 68.8 %
[2016-12-28 01:25] LABS: Hemoglobin 5.4 g/dL (11.5-15.4)
[2016-12-28 01:32] LABS: Calcium 7.8 mg/dL (8.6-10.8)
[2016-12-28 01:33] LABS: Potassium 5.9 mEq/L (3.5-4.5)
[2016-12-28 01:39] LABS: Anisocytosis 1+ (Not Present); Large Platelets Present (Not Present); Macrocytosis Present (Not Present); Platelet Estimate Normal (Normal)
[2016-12-28 01:40] LABS: Hypochromasia Present (Not Present)
[2016-12-28 02:16] LABS: Hematocrit 17.2 % (35.3-44.9)
[2016-12-28 02:30] LABS: Hemoglobin 5.4 g/dL (11.5-15.4)
[2016-12-28] MEDS: Ipratropium/Albuterol Neb 3 ML IH SCH ×4 (04:42→22:56)
[2016-12-28] MEDS: Aspirin 81 MG TAB.CHEW PO SCH (06:19)
[2016-12-28] MEDS: Renal Vitamin 1 MG CAPSULE PO SCH (06:19)
[2016-12-28] MEDS: Lactobacillus 1 EACH CAP.SPRINK PO SCH (06:19)
[2016-12-28] MEDS ORDERED: 0.9 % Sodium Chloride 2,000 ML ONE (07:30)
[2016-12-28] MEDS: SEVELAMER HCL 800 MG PO SCH ×3 (09:26→23:13)
[2016-12-28 09:36] LABS: Hematocrit 17.1 % (35.3-44.9)
[2016-12-28 09:38] LABS: Hemoglobin 5.5 g/dL (11.5-15.4)
[2016-12-28] MEDS ORDERED: 0.9 % Sodium Chloride 250 ML IV PRN (09:49)
--- NOTE | 2016-12-28 09:51 | Nephrology Progress Note ---
Date of Encounter: 12/28/16 Time of Encounter: 09:30 - Assessment and Plan (1) ESRD (end stage renal disease) on dialysis Current Visit: Yes Status: Chronic Hgb drop 5.4 with repeat 5.5. Tentative EGD today, guiac negative. Only dialyzed one hour yesterday secondary to infiltration. Will do HD today, keeping on MWF schedule. Transfuse 2 units PRBC on HD, orders given. Subjective Interval history: Mother at bedside, states patient doing.Thinks is having EGD today secondary to drop in Hgb. Originally mother states Sharron did not have prior emesis, but now states has "been spitting up old blood for past several weeks. " Objective - Vital Signs Vital signs: Vital Signs Temp Pulse Resp BP Pulse Ox 12/28/16 09:00 98.6 F 72 16 98/62 94 L 12/28/16 05:36 91 113/64 12/28/16 04:42 16 94 L 12/28/16 04:06 98.6 F 74 16 98/56 93 L 12/28/16 00:30 98.5 F 85 18 137/69 94 L 12/27/16 22:33 19 93 L 12/27/16 21:27 93 L 12/27/16 20:32 22 171/78 12/27/16 19:46 99.1 F 80 18 115/64 94 L 12/27/16 16:15 171/78 12/27/16 16:00 162/74 12/27/16 15:45 160/70 12/27/16 15:30 152/74 12/27/16 15:15 148/72 12/27/16 15:00 22 154/78 12/27/16 11:30 98.5 F 85 16 154/76 92 L 12/27/16 11:03 16 92 L Intake and Output 12/27/16 12/28/16 12/28/16 23:59 07:59 15:59 Intake Total 340 / 340 100 / 100 Output Total 1000 / 1000 Balance -660 / -660 100 / 100 Intake: IV Fluids 100 / 100 100 / 100 Zosyn 3.375 GM In 100 / 100 100 / 100 Dextrose 5% (Minibag+) 100 ML 100 ML @ 25 mls/hr IVPB Q12H [facility] Rx#: [id number] Oral 240 / 240 Output: Total Dialysis Output 1000 / 1000 Other: Meal Dinner Percent of Meal Consumed 100% Weight 43.8 kg Hemodialysis Net Fluid 700 Removed (mL) Patient Weight 12/28/16 23:59 Weight 43.8 kg - General Appearance General appearance: Present: well-developed, well-nourished, appears started age EENT: Present: mucous membranes moist Neck: Present: no JVD Respiratory: Present: clear Cardiology: Present: regular rate, regular rhythm Additional Comments: mild left pedal edema, left AVG site swollen secondary to HD infiltration yesterday. Gastrointestinal: Present: normoactive bowel sounds, no tenderness, no guarding Integumentary: Present: warm and dry Psychiatric: Present: mood/affect appropriate, cooperative - Lab 12/28/16 09:06 12/28/16 00:49 Most recent lab results Calcium 7.8 mg/dL (8.6-10.8) L 12/28/16 00:49 Phosphorus 4.5 mg/dL (2.3-4.7) 12/27/16 06:10 Magnesium 2.0 mg/dL (1.6-2.6) 12/27/16 06:10 - VTE Documentation of Mechanical Device: Graduated compression elastic hosiery Consult Discharge Plan - Plan Referrals: Yesenia Parra MD [Primary Care Provider] -
--- NOTE | 2016-12-28 10:16 | ECHO - Doppler Report ---
Echo with Saline Contrast Name: Kika Sams Date of Study: 12/27/2016 Date: 1965 Ht: 61.0 in Medical Record#: [id number] Age: 51 Wt: 93.0 lb Gender: Female BSA: 1.36 Order #: [id number] Location: [facility] Room #: 2A35 Reading Physician: Mati Gonsales DO, MYLA, ANNIE XIONG Cardiology Nurse Practitioner: Mitali Cuellar Ordering Physician: Connie Suero MD Primary Physician: Yesenia Drummond MD Indications: Chest pain Impressions: LVEF 60%. Normal LV chamber size and function. Mild concentric left ventricular hypertrophy. Mild left ventricular diastolic dysfunction. Normal right ventricular structure and function. No evidence of PFO with agitated saline contrast. Mild mitral regurgitation. Mild tricuspid regurgitation. Mild pulmonary hypertension. Estimated RVSP is 36 mmHg. Left Ventricular Wall Motion: Rest Echo Findings All wall segments showed normal motion. Findings: Study Quality * Technically adequate exam. ECG Findings * Normal sinus rhythm. Left Ventricle * LVEF 60%. * Normal LV chamber size and function. * Mild concentric left ventricular hypertrophy. * Mild left ventricular diastolic dysfunction. Right Ventricle * Normal right ventricular structure and function. Left Atrium * Mildly dilated left atrium. Right Atrium * Normal right atrial size. Interatrial Septum * No evidence of PFO with agitated saline contrast. Aortic Valve * Trileaflet aortic valve. * Mildly sclerotic aortic valve leaflets. * No aortic regurgitation. * No aortic stenosis. Mitral Valve * Normal mitral valve structure. * Mild mitral regurgitation. * No mitral stenosis. Tricuspid Valve * Normal tricuspid valve structure. * Mild tricuspid regurgitation. * Mild pulmonary hypertension. * Estimated RVSP is 36 mmHg. * Estimated RA pressure is 5 mmHg. Pulmonic Valve * Normal pulmonic valve structure and function. * Trace pulmonic regurgitation. Aorta * Normally sized aortic root. Pericardium * The pericardium appears normal. IVC * Normal IVC dimensions and inspiratory collapse. Pulmonary Artery * Normal visualized portions of the main pulmonary artery. History Hypertension Family History of CAD 01/24/2012 a Previous Echo was performed. Contrast: Agitated saline 20 ml. Measurements: BP: 171/ 78 2D Normal Values RVIDd: 2.10 cm <2.7 cm IVSd: 1.30 cm 0.6 - 1.0 cm LVIDd: 5.10 cm 3.7 - 5.6 cm LVPWd: 1.30 cm 0.6 - 1.1 cm LVIDs: 3.80 cm 1.5 - 3.6 cm AO: 2.40 cm < 4.0 cm LA: 4.20 cm 2.0 - 4.0cm %FS: 25.50 cm >25 % LA volume: 52 Mitral Valve Peak E:1.53 m/sec Peak A:1.54 m/sec E/A Ratio:1 Peak E' Lat Taz:11 cm/s Peak E' Med Taz:6.04 cm/s E/E' Lat Ratio:13.9 E/E' Med Ratio:25.3 Tricuspid Valve TV Regurg Peak Grad: 32.00mmHg TV Regurg Peak Taz: 2.81m/sec Updated by Mati Gonsales DO, FACLissa, ANNIE XIONG on 12/28/2016 10:10:34 AM electronically signed on 12/28/2016 10:11:06 AM with status of Final Wall Motion [place]: 1=Normal, 2=Hypokinesis, 3=Akinesis, 4=Dyskinesis, 5=Aneurysmal, 6=Hyperkinetic, X=Not Visualized (Blank)=Missing
[2016-12-28 11:17] LABS: % Iron Saturation 59 % (15-50); Iron 68 mcg/dL (50-170); Transferrin 83 mg/dL (180-382)
[2016-12-28] MEDS ORDERED: 0.9 % Sodium Chloride 1,000 ML ONE (11:18)
--- NOTE | 2016-12-28 11:27 | Internal Med Progress Note ---
Date of Encounter: 12/28/16 Time of Encounter: 09:10 - Assessment and plan (1) Colitis, acute Current Visit: Yes Status: Suspected Assessment and plan: Continue current antibiotics. GI has been consulted for anemia. We will follow the recommendations. (2) Anemia in chronic kidney disease (CKD) Current Visit: Yes Status: Chronic Assessment and plan: Acute on chronic anemia. Uncertain etiology. Stool for occult blood was negative. Will repeat. Also consulted GI. Monitor blood counts. Patient will be transfused 2 units of packed red blood cells today. Given the severity of the anemia, will change patient's status and admitted to inpatient. He should not at high risk for complications from this condition (3) ESRD (end stage renal disease) on dialysis Current Visit: Yes Status: Chronic Assessment and plan: Nephrology following. Patient will be dialyzed today. 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 Denies any hematemesis or melena. No abdominal pain reported today. Tolerating diet well. Patient was able to be dialyzed for only one hour yesterday infiltration and had developed chest pain at that time. - Constitutional Vitals: Temp Pulse Resp BP Pulse Ox 98.6 F 72 16 98/62 94 L 12/28/16 09:00 12/28/16 09:00 12/28/16 09:00 12/28/16 09:00 12/28/16 09:00 General appearance: Present: cooperative, A&O X 2, pleasant, answers questions appropriately - Respiratory Respiratory exam: Present: CTAB. Absent: accessory muscle use, rales, rhonchi, wheezes - Cardiovascular Cardiovascular exam: Present: RRR, +S1, +S2. Absent: diastolic murmur, gallop, rubs, systolic murmur - GI/Abdominal GI/Abdominal exam: Present: normal bowel sounds, soft, no peritoneal signs. Absent: distended, tenderness - Extremities Exam Extremities exam: Present: warm, radial pulses palpable and symetrical. Absent : calf tenderness, cyanotic, pedal edema - Neurological Exam Neurological exam: Present: no focal deficits. Absent: facial droop, speech deficit - Skin Skin exam: Present: dry, intact, pallor Internal Medicine: Result - Labs CBC & Chem 7: 12/28/16 09:06 12/28/16 00:49 Labs: Short CBC 12/28/16 12/28/16 12/28/16 Range/Units 00:49 02:04 09:06 WBC 4.2 L (4.3-11.1) K/mcL Hgb 5.4 L* D 5.4 L* 5.5 L* (11.5-15.4) g/dL Hct 17.3 L 17.2 L 17.1 L (35.3-44.9) % Plt Count 134 L (140-400) K/mcL Neutrophils # 2.9 (1.6-8.9) K/mcL BMP 12/28/16 00:49 Sodium 140 Potassium 5.9 H Chloride 102 Carbon Dioxide 28 BUN 59 H Creatinine 6.33 H Glucose 115 H Calcium 7.8 L Cardiac Enzymes 12/27/16 12/28/16 12/28/16 Range/Units 18:00 00:49 06:05 Troponin I 0.03 0.03 0.02 (0-0.03) ng/mL - VTE Documentation of Mechanical Device: Graduated compression elastic hosiery Consult Discharge Plan - Plan Referrals: Yesenia Parra MD [Primary Care Provider] - - Attending Attestation This document has been at least partially created by [employer] recognition technology by Dr. Suero. Errors in grammar, wording or other phrases may exist. If errors are found after the documentation is signed, they will be addressed individually in the addendum section of this document when appropriate.
--- NOTE | 2016-12-28 11:27 | Gastroenterology Consult Note ---
<Vivek Jacques - Last Filed: 12/28/16 11:25> Date of Encounter: 12/28/16 Time of Encounter: 10:05 - Assessment and plan (1) Anemia Current Visit: Yes Status: Acute Assessment and plan: Baseline Hgb is 10. Hgb on admission was 7.9, this AM Hgb 5.4. Two units PRBC ordered, to be given during dialysis. Plan for EGD and colonoscopy on Saturday. Clear liquid diet today and Saturday, no red or purple. NPO at midnight. Use MiraLAX prep and Gatorade, full dose Saturday and half dose on Saturday. Give Dulcolax 20mg Saturday and Saturday. If not clear by 6 AM Saturday, give 2 tap water enemas. If not able to tolerate Miralax prep, insert Dobbhoff. Qualifiers: Anemia type: unspecified type Qualified Code(s): D64.9 - Anemia, unspecified (2) Colitis, acute Current Visit: Yes Status: Suspected Assessment and plan: CT A/P showed mild circumferential wall thickening at the cecum which could be due to under distention or mild colitis. Then for colonoscopy on Saturday. (3) ESRD (end stage renal disease) on dialysis Current Visit: Yes Status: Chronic Assessment and plan: Per Nephrology. - Time Spent With Patient Total time spent is greater than 50% in coordination of care (as documented) at patient's floor/unit and/or counseling patient: GI History of Present Illness - Data of Consult Patient: new to practice Consult date: 12/28/16 Requesting Physician: Connie Suero MD - Consult Narrative Reason for consult: S2arhgl anemia History of present illness: Ms. Sams is a 51 year old female with PMHx of MRDD, ESRD on dialysis, HTN who presented to the ED with anemia. Her baseline Hgb is 10, and on admission Hgb 7.9, this AM Hgb 5.4. While at dialysis, she was having vomiting and diarrhea, but none since admission. She reports some mild abdominal pain. CT A/ P showed mild circumferential wall thickening at the cecum, suggestive of mild colitis. Patients father was diagnosed with colon cancer in his 70's. Mother states that the patient has attempted "several" colonoscopies in the past, but was never able to complete the prep. Procedures: EGD 10/11/2011 Dr. Raymundo: Fresh blood in hypopharynx and laryngeal area. NSAIDs: ASA Anticoagulation: None Past Med Surg Social Fam HX - Past Medical History Medical history: arthritis, dialysis, GERD, hypertension, renal disease, other Psychiatric history: other - Past Surgical History Surgical History: other, vascular surgery - Social History Smoking Status: Never smoker Smokeless Tobacco Status: No Alcohol use: none Drug use: none - Gastrointestinal Gastrointestinal: Present: as per HPI - Constitutional Constitutional: as per HPI - EENT Eyes: as per HPI Ears: Present: as per HPI Nose, mouth and throat: Present: as per HPI - Cardiovascular Cardiovascular ROS: Present: as per HPI - Respiratory Respiratory IM: Present: as per HPI - Genitourinary Genitourinary: Absent: change in color, Urinary frequency - Neurological ROS Neurological GI: Present: as per HPI - Hematologic/Lymphatic Hematologic/Lymphatic pediatric: Present: as per HPI - Musculoskeletal Musculoskeletal ROS GI: Present: as per HPI - Integumentary Integumentary GI: Present: as per HPI - Psychiatric ROS Psychiatric GI: Present: as per HPI - Endocrine Endocrine IM: Present: as per HPI - Constitutional Vitals: Temp Pulse Resp BP Pulse Ox 98.6 F 72 16 98/62 94 L 12/28/16 09:00 12/28/16 09:00 12/28/16 09:00 12/28/16 09:00 12/28/16 09:00 General appearance: Present: cooperative, A&O X 3, no acute distress, answers questions appropriately - Head Head exam: Present: atraumatic, normocephalic - Eye Eye exam: Present: normal appearance, sclera anicteric - ENT ENT exam: Present: mucous membranes moist - Neck Neck exam general surgery: Present: normal inspection, trachea midline - Respiratory Respiratory exam: Present: CTAB. Absent: rales, rhonchi - Cardiovascular Cardiovascular exam: Present: RRR, +S1, +S2 - GI/Abdominal GI/Abdominal exam: Present: soft, no peritoneal signs. Absent: distended, firm , guarding, tenderness - Rectal Rectal exam: Present: deferred - Extremities Exam Extremities exam: Present: warm - Neurological Exam Neurological exam: Present: no focal deficits - Psychiatric Psychiatric exam: Present: normal affect, normal mood - Skin Skin exam: Present: dry, intact, normal color, warm Results - Labs CBC & Chem 7: 12/28/16 09:06 12/28/16 00:49 Labs: Last Result ESR 50 mm/hr (0-15) H 12/27/16 06:10 Calcium 7.8 mg/dL (8.6-10.8) L 12/28/16 00:49 Iron 68 mcg/dL (50-170) 12/28/16 09:06 % Saturation 59 % (15-50) H 12/28/16 09:06 Transferrin 83 mg/dL (180-382) L 12/28/16 09:06 Troponin I 0.02 ng/mL (0-0.03) 12/28/16 06:05 C-Reactive Protein 23 mg/L (Less than 5) H 12/27/16 06:10 Stool Occult Blood Negative (Negative) 12/26/16 14:20 Entire Visit Hgb 5.5 g/dL (11.5-15.4) L* 12/28/16 09:06 Hct 17.1 % (35.3-44.9) L 12/28/16 09:06 Total Bilirubin 0.3 mg/dL (0.2-1.2) 12/27/16 06:10 AST 19 Units/L (5-34) 12/27/16 06:10 ALT 11 Units/L (0-55) 12/27/16 06:10 Consult Discharge Plan - Plan Referrals: Yesenia Parra MD [Primary Care Provider] - <Bianca Raymundo - Last Filed: 12/28/16 13:50> Date of Encounter: 12/28/16 - Time Spent With Patient Total time spent is greater than 50% in coordination of care (as documented) at patient's floor/unit and/or counseling patient: GI History of Present Illness - Data of Consult Requesting Physician: Connie Suero MD - Consult Narrative History of present illness: Ms. Sams is a 51 year old female - Constitutional Vitals: Temp Pulse Resp BP Pulse Ox 97.4 F L 77 14 157/79 94 L 12/28/16 12:55 12/28/16 12:55 12/28/16 12:55 12/28/16 12:55 12/28/16 11:49 Results - Labs CBC & Chem 7: 12/28/16 09:06 12/28/16 00:49 Labs: Last Result ESR 50 mm/hr (0-15) H 12/27/16 06:10 Calcium 7.8 mg/dL (8.6-10.8) L 12/28/16 00:49 Iron 68 mcg/dL (50-170) 12/28/16 09:06 % Saturation 59 % (15-50) H 12/28/16 09:06 Transferrin 83 mg/dL (180-382) L 12/28/16 09:06 Ferritin 785 ng/ml (5-204) H 12/28/16 09:06 Troponin I 0.02 ng/mL (0-0.03) 12/28/16 06:05 C-Reactive Protein 23 mg/L (Less than 5) H 12/27/16 06:10 Stool Occult Blood Negative (Negative) 12/26/16 14:20 Entire Visit Hgb 5.5 g/dL (11.5-15.4) L* 12/28/16 09:06 Hct 17.1 % (35.3-44.9) L 12/28/16 09:06 Ferritin 785 ng/ml (5-204) H 12/28/16 09:06 Total Bilirubin 0.3 mg/dL (0.2-1.2) 12/27/16 06:10 AST 19 Units/L (5-34) 12/27/16 06:10 ALT 11 Units/L (0-55) 12/27/16 06:10
[2016-12-28 11:35] LABS: Ferritin 785 ng/ml (5-204)
[2016-12-28 12:27] LABS: Hepatitis B Surface Antibody 0.65 mIU/mL; Hepatitis B Surface Antigen Nonreactive (Nonreactive)
[2016-12-28] MEDS: Metoprolol XL (24 HR) Succ 50 MG TAB.ER.24H PO SCH (14:31)
[2016-12-28] MEDS: Piperacillin/Tazobactam 3.375 GM in D5% in Water (Mini-Bag+) 100 ML IVPB SCH (14:31)
[2016-12-28] MEDS: Polyethylene Glycol 3350 255 GM POWDER PO SCH (14:31)
--- NOTE | 2016-12-28 15:06 | Electrocardiograph Report ---
[place] [id number] Test Date: 2016-12-27 Pat Name: Kika Sams Department: 112 Room: 2A35 Gender: F Head Cager: : 1965 Requested By: Connie Suero Order Number: [id number] Reading MD: Tierra Richards Measurements Intervals [place] Rate: 99 P: 57 [place]: 141 QRS: -40 QRSD: 85 T: 123 QT: 375 QTc: 432 Interpretive Statements SINUS RHYTHM MARKED LEFT AXIS DEVIATION NONSPECIFIC ST \T\ T-WAVE ABNORMALITY LEAD V3 UNINTERPRETABLE DUE TO SIGNIFICANT ARTIFACT Electronically Signed On 12-28-2016 15:04:32 EST by Tierra Richards
--- NOTE | 2016-12-28 15:14 | Electrocardiograph Report ---
[place] [id number] Test Date: 2016-12-26 Pat Name: Kika Sams Department: 105 Room: 2A35 Gender: F [place]ungsten Tender: : 1965 Requested By: Connie Suero Order Number: [id number] Reading MD: Tierra Richards Measurements Intervals [place] Rate: 104 P: 64 [place]: 130 QRS: -31 QRSD: 85 T: 130 QT: 348 QTc: 408 Interpretive Statements SINUS TACHYCARDIA MARKED LEFT AXIS DEVIATION [QRS AXIS < -30] NONSPECIFIC ST \T\ T-WAVE ABNORMALITY Electronically Signed On 12-28-2016 15:12:51 EST by Tierra Richards
[2016-12-29] MEDS: Piperacillin/Tazobactam 3.375 GM in D5% in Water (Mini-Bag+) 100 ML IVPB SCH ×2 (01:36→11:27)
[2016-12-29] MEDS: Ipratropium/Albuterol Neb 3 ML IH SCH ×4 (04:03→22:21)
[2016-12-29 06:34] LABS: Basophils # 0.1 K/mcL (0.0-0.2); Eosinophils # 0.2 K/mcL (0.0-0.6); Eosinophils % 2.7 %; Hematocrit 28.4 % (35.3-44.9); Immature Granulocytes % 1.2 % (0-4); Lymphocytes # 0.9 K/mcL (0.6-4.6); Lymphocytes % 14.5 %; Mean Corpuscular HGB Conc 32.7 g/dL (31.6-35.5); Mean Corpuscular Hemoglobin 33.2 pg (28.0-33.3); Monocytes # 0.6 K/mcL (0.0-1.3); Neutrophils # 4.2 K/mcL (1.6-8.9); Platelet Count 127 K/mcL (140-400); Red Cell Distribution Width 22.2 % (11.5-14.5); Segmented Neutrophils % 70.6 %
[2016-12-29 06:51] LABS: Calcium 7.7 mg/dL (8.6-10.8)
[2016-12-29 06:58] LABS: Potassium 4.5 mEq/L (3.5-4.5)
[2016-12-29 07:19] LABS: Hemoglobin 9.3 g/dL (11.5-15.4); Mean Corpuscular Volume 101.4 fL (83.0-100.0)
--- NOTE | 2016-12-29 09:26 | Nephrology Progress Note ---
Date of Encounter: 12/29/16 Time of Encounter: 09:15 - Assessment and Plan (1) ESRD (end stage renal disease) on dialysis Current Visit: Yes Status: Chronic Hgb 9.3, post PRBC transfusion x 2. EGD/Colonoscopy tomorrow per GI. Subjective Interval history: Mother at bedside. Prep in progress for Colonoscopy/EGD on Saturday. Objective - Vital Signs Vital signs: Vital Signs Temp Pulse Resp BP Pulse Ox 12/29/16 07:50 98.2 F 75 14 154/79 100 12/29/16 04:03 16 98 12/29/16 00:49 98.1 F 82 18 128/64 92 L 12/28/16 22:58 98 12/28/16 22:56 19 98 12/28/16 20:53 98.7 F 82 18 132/67 97 12/28/16 17:00 98.3 F 96 18 150/72 98 12/28/16 16:47 18 150/72 96 12/28/16 13:40 97.4 F L 14 160/83 12/28/16 13:30 167/81 12/28/16 13:15 166/88 12/28/16 13:00 158/84 12/28/16 12:55 97.4 F L 77 14 157/79 12/28/16 12:45 146/87 12/28/16 12:31 97.4 F L 71 16 139/71 12/28/16 12:30 139/71 12/28/16 12:16 97.6 F 71 14 148/72 12/28/16 12:15 148/72 12/28/16 12:06 97.9 F 66 14 152/79 12/28/16 12:00 143/73 12/28/16 11:49 97.4 F L 67 16 120/67 94 L 12/28/16 11:45 138/69 12/28/16 11:34 97.9 F 68 16 120/67 12/28/16 11:30 121/59 Intake and Output 12/28/16 12/29/16 12/29/16 23:59 07:59 15:59 Intake Total 100 / 100 Output Total 0 / 0 0 / 0 Balance 100 / 100 0 / 0 Intake: IV Fluids 100 / 100 Zosyn 3.375 GM In 100 / 100 Dextrose 5% (Minibag+) 100 ML 100 ML @ 25 mls/hr IVPB Q12H [facility] Rx#: [id number] Oral 0 / 0 Output: Urine 0 / 0 0 / 0 Other: Stool Size Copious Stool Consistency liquid # Bowel Movements 1 - General Appearance General appearance: Present: well-developed, well-nourished, appears started age EENT: Present: mucous membranes moist Neck: Present: no JVD Respiratory: Present: clear Cardiology: Present: no edema, regular rate, regular rhythm Gastrointestinal: Present: normoactive bowel sounds, no tenderness Integumentary: Present: warm and dry Psychiatric: Present: mood/affect appropriate, cooperative - Lab 12/29/16 06:17 12/29/16 06:17 Most recent lab results Calcium 7.7 mg/dL (8.6-10.8) L 12/29/16 06:17 Phosphorus 4.5 mg/dL (2.3-4.7) 12/27/16 06:10 Magnesium 2.0 mg/dL (1.6-2.6) 12/27/16 06:10 - VTE Documentation of Mechanical Device: Graduated compression elastic hosiery Consult Discharge Plan - Plan Referrals: Yesenia Parra MD [Primary Care Provider] -
[2016-12-29] MEDS: Lactobacillus 1 EACH CAP.SPRINK PO SCH ×2 (09:35→10:24)
[2016-12-29] MEDS: Aspirin 81 MG TAB.CHEW PO SCH ×2 (09:35→10:25)
[2016-12-29] MEDS: Renal Vitamin 1 MG CAPSULE PO SCH (09:36)
[2016-12-29] MEDS: SEVELAMER HCL 800 MG PO SCH ×3 (09:36→20:49)
[2016-12-29] MEDS: Metoprolol XL (24 HR) Succ 50 MG TAB.ER.24H PO SCH ×2 (09:36→10:24)
--- NOTE | 2016-12-29 11:26 | Internal Med Progress Note ---
Date of Encounter: 12/29/16 Time of Encounter: 10:35 - Assessment and plan (1) Colitis, acute Current Visit: Yes Status: Suspected Assessment and plan: Awaiting colonoscopy tomorrow. Continue antibiotics in the meantime. (2) Anemia in chronic kidney disease (CKD) Current Visit: Yes Status: Chronic Assessment and plan: Improved after blood transfusion yesterday. Likely related to chronic kidney disease. Awaiting GI workup with EGD and colonoscopy tomorrow. (3) ESRD (end stage renal disease) on dialysis Current Visit: Yes Status: Chronic Assessment and plan: Continue dialysis management per nephrology recommendations. 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 Patient is doing well. Denies any chest pain. No abdominal pain reported. - Constitutional Vitals: Temp Pulse Resp BP Pulse Ox 98.2 F 75 14 154/79 100 12/29/16 07:50 12/29/16 07:50 12/29/16 07:50 12/29/16 07:50 12/29/16 07:50 General appearance: Present: cooperative, A&O X 2, pleasant, answers questions appropriately - Neck Neck exam general surgery: Present: trachea midline. Absent: lymphadenopathy - Respiratory Respiratory exam: Present: CTAB. Absent: accessory muscle use, rales, rhonchi, wheezes - Cardiovascular Cardiovascular exam: Present: RRR, +S1, +S2. Absent: diastolic murmur, gallop, rubs, systolic murmur - GI/Abdominal GI/Abdominal exam: Present: normal bowel sounds, soft, no peritoneal signs. Absent: distended, tenderness - Neurological Exam Neurological exam: Present: alert, no focal deficits. Absent: facial droop, speech deficit Internal Medicine: Result - Labs CBC & Chem 7: 12/29/16 06:17 12/29/16 06:17 Labs: Short CBC 12/29/16 Range/Units 06:17 WBC 6.0 (4.3-11.1) K/mcL Hgb 9.3 L D (11.5-15.4) g/dL Hct 28.4 L (35.3-44.9) % Plt Count 127 L (140-400) K/mcL Neutrophils # 4.2 (1.6-8.9) K/mcL BMP 12/29/16 06:17 Sodium 135 L Potassium 4.5 D Chloride 99 Carbon Dioxide 26 BUN 37 H D Creatinine 4.44 H Glucose 89 Calcium 7.7 L - VTE Documentation of Mechanical Device: Graduated compression elastic hosiery Consult Discharge Plan - Plan Referrals: Yesenia Parra MD [Primary Care Provider] - - Attending Attestation This document has been at least partially created by [employer] recognition technology by Dr. Suero. Errors in grammar, wording or other phrases may exist. If errors are found after the documentation is signed, they will be addressed individually in the addendum section of this document when appropriate.
[2016-12-29] MEDS: Polyethylene Glycol 3350 255 GM POWDER PO SCH (12:32)
[2016-12-30] MEDS: Piperacillin/Tazobactam 3.375 GM in D5% in Water (Mini-Bag+) 100 ML IVPB SCH ×2 (01:15→11:48)
[2016-12-30] MEDS: Ipratropium/Albuterol Neb 3 ML IH SCH ×3 (04:03→15:58)
[2016-12-30 06:36] LABS: Basophils # 0.1 K/mcL (0.0-0.2); Basophils % 0.9 %; Eosinophils # 0.1 K/mcL (0.0-0.6); Eosinophils % 2.2 %; Hemoglobin 9.6 g/dL (11.5-15.4); Immature Granulocytes % 1.2 % (0-4); Lymphocytes # 0.5 K/mcL (0.6-4.6); Lymphocytes % 8.3 %; Mean Corpuscular HGB Conc 33.1 g/dL (31.6-35.5); Mean Corpuscular Hemoglobin 33.9 pg (28.0-33.3); Mean Corpuscular Volume 102.5 fL (83.0-100.0); Mean Platelet Volume 11.4 fL (9.4-12.4); Monocytes # 0.3 K/mcL (0.0-1.3); Monocytes % 5.3 %; Neutrophils # 4.8 K/mcL (1.6-8.9); Platelet Count 123 K/mcL (140-400); Red Blood Count 2.83 M/mcL (3.82-4.97); Red Cell Distribution Width 19.9 % (11.5-14.5); Segmented Neutrophils % 82.1 %
[2016-12-30] MEDS: Aspirin 81 MG TAB.CHEW PO SCH (07:47)
[2016-12-30] MEDS: SEVELAMER HCL 800 MG PO SCH ×2 (07:47→15:05)
[2016-12-30] MEDS: *HR* Promethazine 25 MG/ML VIAL IVP PRN (08:01)
[2016-12-30] MEDS: Metoprolol XL (24 HR) Succ 50 MG TAB.ER.24H PO SCH (08:03)
[2016-12-30] MEDS ORDERED: Simethicone 40 MG/0.6 ML MLS IR ONE (08:29)
[2016-12-30] MEDS ORDERED: Tetracaine/Benzocaine/Butamben 200MG/SPRAY (100SPY/BOT) MM ONE (08:29)
--- NOTE | 2016-12-30 08:29 | Pre-Sedation Evaluation ---
Pre-sedation evaluation - Pre-sedation checklist Recent Vitals: Last Vital Signs Temp 98.1 F 12/30/16 07:21 Pulse 77 12/30/16 07:21 Resp 16 12/30/16 07:21 BP 122/71 12/30/16 07:21 Pulse Ox 93 L 12/30/16 07:21 ASA Classification *see protocol: CLASS III-Severe systemic disease Plan of Care: Pt appropriate candidate for procedure/moderate/conscious sedation , Risks/benefits of procedure/sedation discussed w/ patient/family
[2016-12-30] MEDS: *HR* FentaNYL (PF) 100 MCG/2 ML VIAL IVP PRN ×2 (08:54→09:06)
[2016-12-30] MEDS: *HR* Midazolam HCl 5 MG/5 ML VIAL IVP PRN ×2 (08:54→09:05)
[2016-12-30] MEDS: Lactobacillus 1 EACH CAP.SPRINK PO SCH (09:00)
[2016-12-30] MEDS ORDERED: 0.9 % Sodium Chloride 500 ML IVC SCH (09:00)
--- NOTE | 2016-12-30 10:27 | Nephrology Progress Note ---
Date of Encounter: 12/30/16 Time of Encounter: 09:40 - Assessment and Plan (1) ESRD (end stage renal disease) on dialysis Current Visit: Yes Status: Chronic Hgb 9.6 is stable. EGD/Colonoscopy this AM. EGD showed diffuse candidiasis and gastric atrophy. Colonoscopy colon normal mucosa, few small mouth diverticulum. HD tomorrow, keeping MWF schedule either here or [facility]. Subjective Interval history: Mother at bedside. Patient sleeping post op EGD/colonoscopy this morning. Objective - Vital Signs Vital signs: Vital Signs Temp Pulse Resp BP Pulse Ox 12/30/16 09:15 98.8 F 72 16 180/71 94 L 12/30/16 09:10 98.8 F 71 16 154/78 92 L 12/30/16 09:05 98.8 F 72 16 159/62 96 12/30/16 09:00 98.8 F 67 16 155/65 96 12/30/16 08:55 98.8 F 76 18 155/76 96 12/30/16 08:44 97 18 176/73 98 12/30/16 08:41 65 18 157/85 98 12/30/16 08:37 98.1 F 66 16 157/85 96 12/30/16 07:21 98.1 F 77 16 122/71 93 L 12/30/16 04:45 97.3 F L 67 16 106/71 98 12/30/16 04:04 99 12/30/16 04:03 16 99 12/30/16 01:41 97.9 F 74 16 113/71 98 12/29/16 22:21 18 99 12/29/16 20:45 98.2 F 78 20 138/67 98 12/29/16 16:32 20 98 12/29/16 15:45 98.1 F 77 14 156/73 100 12/29/16 11:26 20 97 12/29/16 11:22 97.4 F L 73 14 174/79 100 Intake and Output 12/29/16 12/30/16 12/30/16 23:59 07:59 15:59 Intake Total 100 / 100 100 / 100 Output Total 0 / 0 0 / 0 Balance 100 / 100 100 / 100 Intake: IV Fluids 100 / 100 100 / 100 Zosyn 3.375 GM In 100 / 100 100 / 100 Dextrose 5% (Minibag+) 100 ML 100 ML @ 25 mls/hr IVPB Q12H [facility] Rx#: [id number] Oral 0 / 0 0 / 0 Output: Urine 0 / 0 0 / 0 Other: Stool Size Small Stool Consistency liquid Stool Color Green # Bowel Movements 1 # Bowel Movement Diapers 0 Weight 38.646 kg 38.646 kg Patient Weight 12/30/16 23:59 Weight 38.646 kg - General Appearance General appearance: Present: well-developed, well-nourished, appears started age EENT: Present: mucous membranes moist Neck: Present: no JVD Additional Comments: harsh BS, mild snoring post procedure, O2/NC Cardiology: Present: no edema, regular rate, regular rhythm Gastrointestinal: Present: normoactive bowel sounds, no tenderness Integumentary: Present: warm and dry - Lab 12/30/16 05:57 12/29/16 06:17 Most recent lab results Calcium 7.7 mg/dL (8.6-10.8) L 12/29/16 06:17 Phosphorus 4.5 mg/dL (2.3-4.7) 12/27/16 06:10 Magnesium 2.0 mg/dL (1.6-2.6) 12/27/16 06:10 - VTE Documentation of Mechanical Device: Graduated compression elastic hosiery Consult Discharge Plan - Plan Referrals: Yesenia Parra MD [Primary Care Provider] - (office staff will call patient for an appointment)
[2016-12-30] MEDS ORDERED: Fluconazole 40 MG/ML UDC PO SCH (11:15)
[2016-12-30 13:07] VITALS: BP 100/55
--- NOTE | 2016-12-30 14:53 | Discharge Summary ---
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 Acidophilus/Pectin, [place] [Acidophilus Probiotic Capsule] 1 each PO DAILY [History] Megestrol Acetate [Megace] 40 mg PO BID 08/09/15 [History] Metoprolol XL (24 HR) Succ [Toprol XL] 50 mg PO DAILY 08/09/15 [History] Omeprazole [PriLOSEC] 20 mg PO DAILY 08/09/15 [History] Oxygen 2 l NS AD 08/09/15 [History] Sevelamer HCl [Renagel] 800 mg PO TID 08/09/15 [History] Aspirin 81 mg PO DAILY 12/26/16 [History] Diltiazem HCl 90 mg PO TID 12/26/16 [History] Fluconazole [Diflucan] 200 mg PO DAILY #14 udc 12/30/16 [Rx] Levothyroxine [Synthroid] 125 mcg PO DAILY #30 tablet 12/30/16 [Rx] Allergies/Adverse Reactions: Allergies No Known Allergies Allergy (Verified 08/02/15 11:30) Procedures/tests Complete & Pending: Procedures Performed prior 72 hours Category Date Time Status ECG 12 lead ECG [ECG] Routine Y 12/27/16 14:29 Completed Date of admission: 12/28/16 11:28 Primary care physician: Yesenia Parra, - Patient Status Disposition: Home, Self-Care Condition: Good Functional capacity at discharge: wheelchair bound Overall status at discharge: patient is progressing back to baseline - Discharge Instructions Instructions: Anemia (GEN) Follow Up With: Yesenia Parra MD [Primary Care Provider] - (office staff will call patient for an appointment) Bianca Raymundo MD [Partnered Physician] - (in 1-2 weeks) - Diet and Activity Activity: resume usual activities as tolerated Diet: advance to your usual diet, low fat, low cholesterol, low salt diet Hospital course: Ms. Sams is a 51 year old female history of mental disability, end-stage renal disease on hemodialysis, chronic anemia from presented to the year with complaints of chest pain and abdominal pain. She was admitted here and started on treatment for acute colitis as her CT scan showed some possible inflammation around the cecum. She also had missed her dialysis sessions due to these symptoms. Nephrology was consulted and the patient was dialyzed in the hospital. During the course of her stay here, she developed severe anemia with hemoglobin going down to 5.5. She received 2 units of packed red blood cell transfusion. Her hemoglobin levels have improved since then. Given her severe anemia, GI was consulted and patient underwent upper GI endoscopy and colonoscopy. She was found to have severe esophageal candidiasis and internal hemorrhoids which were probably the source of her blood loss. She is having no further decrease in her hemoglobin levels. She has not had any bloody bowel movements or hematemesis. At this time, the patient is tolerating diet and is stable to be discharged home. She will follow up with her primary care provider and lease analyst for further management of her chronic conditions. I will also refer her to GI for management of her esophageal candidiasis. - Time Spent with Patient Total time spent providing and/or coordinating discharge services: Greater than 30 minutes (40 min) - Constitutional Vitals: Temp Pulse Resp BP Pulse Ox 97.4 F L 63 16 100/55 92 L 12/30/16 11:00 12/30/16 11:00 12/30/16 11:12 12/30/16 11:12/30/16 11:12 General appearance: Present: cooperative, pleasant, answers questions appropriately Exam: Somnolent but easily awakes. Follows commands. - Respiratory Respiratory exam: Present: CTAB. Absent: accessory muscle use, rales, rhonchi, wheezes - Cardiovascular Cardiovascular exam: Present: RRR, +S1, +S2. Absent: diastolic murmur, gallop, rubs, systolic murmur - GI/Abdominal GI/Abdominal exam: Present: normal bowel sounds, soft, no peritoneal signs. Absent: distended, tenderness - Extremities Exam Extremities exam: Present: warm, radial pulses palpable and symetrical. Absent : calf tenderness, cyanotic, pedal edema - Neurological Exam Neurological exam: Present: no focal deficits. Absent: facial droop, speech deficit - VTE Documentation of Mechanical Device: Graduated compression elastic hosiery - Attending Attestation This document has been at least partially created by [employer] voice recognition technology by Dr. Suero. Errors in grammar, wording or other phrases may exist. If errors are found after the documentation is signed, they will be addressed individually in the addendum section of this document when appropriate.
[2016-12-30] MEDS: Renal Vitamin 1 MG CAPSULE PO SCH (15:05)
== END 2016-12-30 16:47 | disposition home or self-care (01) | DRG 391 ==
LOC: 2ANU 09:52 → EMEROO 09:52 → SUATTDRO 21:52 → 2ANU 22:15
PROVIDERS: ADMIT Internal Medicine; ATTEND Internal Medicine

== ENCOUNTER 2017-02-25 17:15 | Observation (INO) ==
[2017-02-25] MEDS ORDERED: Naloxone 0.4 MG/ML INJ IVP PRN ×2 (21:42→21:48)
[2017-02-25] MEDS ORDERED: *HR* Morphine 2 MG/ML SYRINGE IVP PRN (21:42)
[2017-02-25] MEDS ORDERED: Acetaminophen 325 MG TABLET PO PRN (21:42)
[2017-02-25] MEDS ORDERED: *HR* OxyCODONE Immed Rel 5 MG TABLET PO PRN (21:42)
[2017-02-25] MEDS ORDERED: Albuterol 2.5 MG/3 ML NEBULIZER IH PRN (21:48)
--- NOTE | 2017-02-25 22:01 | Internal Med History&Physical ---
Date of Encounter: 02/25/17 Time of Encounter: 22:00 Assessment and Plan (1) Acute chest wall pain Current visit: Yes Status: Acute . (2) Chest pain, rule out acute myocardial infarction Current visit: Yes Status: Acute . (3) Chest pain with low risk of acute coronary syndrome Current visit: Yes Status: Acute . (4) Acute respiratory disease Current visit: Yes Status: Acute . (5) ESRD (end stage renal disease) on dialysis Current visit: Yes Status: Chronic . 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 Internal Medicine - H&P: HPI Chief complaint: Difficulty breathing. Chest / abdominal pain. Admitted From: Intrahospital Transfer Plans for Post Hospital Care: Home History of present illness: Ms. Sams is a 51 year old female with significant history for Down's syndrome/MRDD, ESRD-HD dependent, PAF, hypertension, dyslipidemia, GERD, hypothyroidism, Traci's c-ANCA vasculitis, chronic interstitial lung dis, chronic respiratory failure continuous oxygen dependent, anemia of chronic disease, h/o C-diff colitis, GERD/candidal esophagitis/gastric atrophy, CAD/PTCAstent, int hemorrhoids, nonsmoker. The patient is admitted to [facility] as a intrahospital transfer from dialysis unit with the patient was undergoing her scheduled Saturday hemodialysis and was observed by attending staff evidence discomfort. Concern was for dialysis associated the chest pain/ACS and the patient was referred to undergo further evaluation. The patient interestingly had underwent a similar concerns during her December 2016 admission that time patient was experiencing transient hypotension during dialysis. That has not been encountered the with presentation this admission. Given the patient's comorbidities a comprehensive clinical evaluation will ensue. Workup and treatment will proceed. The patient was visited and interviewed and examined. Cumulative laboratory and radiographic data base will be considered and discussed. Pertinent ancillary medical records including ECW and PCI documentation when available was reviewed and considered. Given the patient's presenting concerns, past medical history, clinical findings and symptoms, she is admitted at this time will undergo further evaluation and disposition. Orders were written as per Computerized physician orderly system.......................................................................... .................... Consultative opinions will be sought as clinical circumstances justify. Initial consultative opinion has been requested of nephrology. The dialysis team contacted to facilitate standard Saturday hemodialysis drooling. Pain management needs will be addressed. Laboratory /radiographic data base will be updated as appropriate. Studies include: Cultures blood and sputum, ddimer,pt/inr, aptt, UA, cpk, cardiac injury panel, BNP, metabolic and hematologic panel, magnesium ,phosphorus, ionized calcium, thyroid panel, lipid profile, A1c, C-peptide, CRP, sedimentation rate, respiratory infection profile, respiratory virus panel, blood gas, lactic acid, serologies, etc. Precautions: Aspiration, fall, delirium protocol/surveillance initiated. Telemetry with continuous hemodynamic monitoring and pulse oximetry initiated. Orthostatic vital signs. Empiric antibiotic coverage: pending diagnostic/culture data. Special studies: CT chest, chest x-ray, telemetry, EKG, 2d echocardiogram. Pulmonary toilet: Incentive spirometry, aerosol bronchodilator, mucolytic, antitussive, supplemental oxygen. Corticosteroid therapy PRN. CPAP/BiPAP supplemental oxygen delivery PRN. Aerosol Mucomyst therapy PRN. Fluid and electrolyte repletion efforts will proceed. Careful attention to fluid balance and renal recovery will be emphasized. Avoidance of nephrotoxic exposure and adverse drug drug interaction in the setting of impaired renal function will be monitored closely. Acute coronary syndrome protocol/surveillance initiated. DVT and PUD prophylaxis initiated: PPI therapy, intermittent pneumatic cuffs. Subcutaneous heparin. Early ambulation will be encouraged. Immunization updates recommended. Influenza and pneumococcal vaccinations as part of ongoing preventative healthcare recommendations strongly recommended. Smoking cessation counseling briefly addressed. Patient is a nonsmoker. Advanced care directive discussion briefly addressed. Patient does not declare any healthcare restrictions at this time. Cardiovascular risk appraisal and cardiovascular risk reduction efforts will be emphasized. Physical /occupational therapy consulted to evaluate patient's functional capacity and progressive mobility as her circumstances justify. Nutrition/dietary education counseling may be considered as circumstances justify. Renal diet. Supplemental diet options. Outpatient medication schedules will be reviewed, confirmed and facilitated as appropriate. Reconciliation of home treatments including adjustments, substitutions and reintroduction into the treatment regimen will address necessary maintenance therapies for chronic pre-existing medical conditions. Plan of care has been reviewed and discussed in detail with the patient. Questions addressed. Hospital course dictated by clinical findings, treatment response and potential consultative interventions. Patient is a risk for further acute clinical decline due to her frailty, chief complaints and co-morbidities. Condition is serious. Prognosis is guarded. CODE STATUS is full. Past Med Surg Social Fam HX - Past Medical History Source: old records reviewed Medical history: arthritis, atrial fibrillation, COPD, coronary artery disease, dialysis, GERD, GI bleed, hyperlipidemia, hypertension, osteoporosis, renal disease, thyroid disease, other Psychiatric history: other - Past Surgical History Surgical History: angioplasty/stent, sinus surgery, other, vascular surgery - Social History Smoking Status: Never smoker Smokeless Tobacco Status: No Alcohol use: none Drug use: none Occupational status: disabled Current living situation: Home, With Family Activity Level: Independent ambulation, Mostly sedentary Recent Out of Country Travel Within the Last 8 Weeks: No Exposure or Possible Exposure to Illness During Travel: No Internal Medicine - H&P: Meds Atorvastatin [Lipitor] 40 mg PO HS 08/09/15 [History] L. Acidophilus/Pectin, [place] [Acidophilus Probiotic Capsule] 1 each PO DAILY [History] Megestrol Acetate [Megace] 40 mg PO DAILY 08/09/15 [History] Omeprazole [PriLOSEC] 20 mg PO BID 08/09/15 [History] Diltiazem HCl 60 mg PO BID 12/26/16 [History] Levothyroxine [Synthroid] 125 mcg PO DAILY #30 tablet 12/30/16 [Rx] Metoprolol XL (24 HR) Succ [Toprol XL] 50 mg PO DAILY 02/26/17 [History] Renal Vitamin [Renal Caps Softgel] 1 mg PO DAILY 02/26/17 [History] Sevelamer [Renvela] 800 mg PO TID 02/26/17 [History] Allergies No Known Allergies Allergy (Verified 02/26/17 08:15) ROS unobtainable: due to mental status All Systems PM: A 10-system review of systems was performed and is negative for pertinent findings except as documented above in the HPI. The patient is a limited historian of circumstances and events. Details are collected from cumulative records, EMS and ED staff triage and reports from dialysis center. 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 Hyperkalemia, diminished renal excretion (Acute Medical) E87.5 Hyperosmolality (Acute Medical) E87.0 Hypoalbuminemia due to protein-calorie malnutrition (Chronic Medical) E46 Vitamin deficiency (Chronic Medical) E56.9 Iron deficiency (Chronic Medical) E61.1 Candidiasis of esophagus (Acute Medical) B37.81 Acute chest wall pain (Acute Medical) R07.89 Acute respiratory disease (Acute Medical) J06.9 Chest pain with low risk of acute coronary syndrome (Acute Medical) R07.9 Chest pain, rule out acute myocardial infarction (Acute Medical) R07.9 Colitis, acute (Ruled-out Medical) K52.9 - Constitutional Constitutional: as per HPI - EENT Eyes: as per HPI Ears: as per HPI Nose, mouth and throat: as per HPI - Cardiovascular Cardiovascular ROS IM: as per HPI - Respiratory Respiratory: as per HPI - Gastrointestinal Gastrointestinal: as per HPI - Genitourinary Genitourinary: as per HPI - Musculoskeletal Musculoskeletal ROS IM: as per HPI - Integumentary Integumentary IM: as per HPI - Neurological Neurological ROS: as per HPI - Psychiatric Psychiatric: as per HPI - Endocrine Endocrine IM: as per HPI - Hematologic/Lymphatic Hematologic/Lymphatic: as per HPI - Allergic/Immunologic Allergic/Immunologic: as per HPI - Constitutional Vitals: Temp Pulse Resp BP Pulse Ox 97.7 F 93 18 173/93 96 02/25/17 19:51 02/25/17 19:51 02/25/17 19:51 02/25/17 19:51 02/25/17 19:51 Vital Signs Temp Pulse Resp BP Pulse Ox 04/03/17 19:51 97.7 F 93 18 173/93 96 Intake and Output 02/25/17 02/25/17 02/25/17 07:59 15:59 23:59 Intake Total 350 / 350 Balance 350 / 350 Intake: Oral 350 / 350 Other: Meal SANDWICH,PUDDING,SODA Percent of Meal Consumed 100% Weight 41.73 kg Patient Weight 02/25/17 23:59 Weight 41.73 kg General appearance: Present: mild distress, A&O X 3, underweight, answers questions appropriately - Head Head exam: Present: atraumatic, normocephalic - Eye Eye exam: Present: EOMI, PERRL, conjuntiva pink, sclera anicteric Pupils: Present: normal accommodation, PERRL - ENT ENT exam: Present: mucous membranes moist, normal oropharynx - Neck Neck exam general surgery: Present: supple, trachea midline. Absent: lymphadenopathy - Respiratory Respiratory exam: Present: chest wall tenderness, decreased breath sounds. Absent: accessory muscle use, CTAB, rales, rhonchi, stridor, wheezes - Cardiovascular Cardiovascular exam: Present: distant heart sounds, RRR, +S1, +S2. Absent: diastolic murmur, gallop, rubs, systolic murmur - GI/Abdominal GI/Abdominal exam: Present: normal bowel sounds, soft, no peritoneal signs. Absent: distended, tenderness - Extremities Exam Extremities exam: Present: warm, radial pulses palpable and symetrical. Absent : calf tenderness, cyanotic, pedal edema - Neurological Exam Neurological exam: Present: alert, altered, CN II-XII intact, oriented X3, no focal deficits. Absent: pronater drift, facial droop, speech deficit - Psychiatric Psychiatric exam: Present: anxious, flat affect - Skin Skin exam: Present: dry, intact, warm. Absent: petechiae, rash, urticaria, vesicles Internal Med - H&P Results - Labs CBC & Chem 7: 02/25/17 22:27 02/25/17 22:27 - Attending Attestation Allergies No Known Allergies Allergy (Verified 08/02/15 11:30) Home Medications Medication Instructions Recorded Confirmed Type Atorvastatin [Lipitor] 40 mg PO HS 08/09/15 12/26/16 History B Complex W-C No.20/Folic Acid 1 mg PO DAILY 08/09/15 12/26/16 History [Nephrocaps Softgel] L. Acidophilus/Pectin, [place] 1 each PO DAILY 08/09/15 12/26/16 History [Acidophilus Probiotic Capsule] Megestrol Acetate [Megace] 40 mg PO BID 08/09/15 08/09/15 History Omeprazole [PriLOSEC] 20 mg PO BID 08/09/15 12/26/16 History Diltiazem HCl 60 mg PO BID 12/26/16 12/26/16 History I & O 02/22/17 02/23/17 02/24/17 02/25/17 23:59 23:59 23:59 23:59 Intake Total 350 / 350 Balance 350 / 350 Weight 41.73 kg Intake: Oral 350 / 350 Other: Meal SANDWICH,PUDDING,SODA Percent of Meal Consumed 100% Medications Acetaminophen (Tylenol) 650 mg PO Q6HR PRN PRN Reason: Mild Pain (1-3) Stop: 08/27/17 21:43 Albuterol Sulfate (Proventil Neb) 2.5 mg IH Q2H PRN PRN Reason: Shortness Of Breath/Wheezing Stop: 08/27/17 21:49 Albuterol/Ipratropium (Duoneb) 3 ml IH QIDR [facility] Stop: 08/27/17 23:01 Atorvastatin Calcium (Lipitor) 40 mg PO HS [facility] Stop: 08/28/17 21:01 Docusate Sodium (Colace) 100 mg PO BID PRN PRN Reason: Constipation Stop: 08/27/17 21:43 Heparin Sodium (Porcine) (Heparin) 5,000 unit SQ Q8HCO [facility] Stop: 08/27/17 22:01 Levothyroxine Sodium (Synthroid) 125 mcg PO DAILY [facility] Stop: 08/28/17 09:01 Megestrol Acetate (Megace) 40 mg PO BID [facility] Stop: 08/28/17 09:01 Morphine Sulfate (Morphine Sulfate) 2 mg IVP Q4HR PRN PRN Reason: Severe Pain (7-10) Stop: 08/27/17 21:43 Naloxone HCl (Narcan) 0.4 mg IVP Q2MIN PRN PRN Reason: Opioid Reversal Stop: 08/27/17 21:43 Naloxone HCl (Narcan) 0.4 mg IVP Q2MIN PRN PRN Reason: Opioid Reversal Stop: 08/27/17 21:49 Non-Formulary Medication (L. Acidophilus/Pectin, [place] [Acidophilus Probiotic Capsule]) 1 each PO DAILY [facility] Stop: 08/28/17 09:01 Omeprazole (Prilosec) 20 mg PO DAILY@0630 XIMENA PRN Reason: Protocol Stop: 08/28/17 06:31 Ondansetron HCl (Zofran) 4 mg IVP Q8HR PRN PRN Reason: Nausea And Vomiting Stop: 08/27/17 21:43 Oxycodone HCl (Roxicodone) 5 mg PO Q6HR PRN PRN Reason: Moderate Pain (4-6) Stop: 08/27/17 21:43 Vitamin B Complex/Vit C/Folic Acid (Renal Caps Softgel) 1 mg PO DAILY [facility] Stop: 08/28/17 09:01 Nursing Notes 02/25/17 20:59 Nurse Note by Justice Durand A Caregiver with patient stated that patient likes a late morning bath and to postpone until later tomorrow morning Initialized on 02/25/17 20:59 - END OF NOTE 02/25/17 20:26 Nurse Note by Johana Hilton ADMISSION COMPLETED-TELEMETRY APPLIED. SLEEP CHAIR OBTAINED FOR PARENT.. PT LUE IS EDEMATOUS-ELEVATED ON PILLOW. PT IS EATING SANDWICH,PUDDING AND SODA. NOTIFIED OF PT ARRIVAL Initialized on 02/25/17 20:26 - END OF NOTE Orders 02/25/17 21:42 Vital Signs Assessment [RC] Q4H Acetaminophen [Tylenol] 650 mg PO Q6HR PRN Docusate [Colace] 100 mg PO BID PRN Morphine [Morphine Sulfate] 2 mg IVP Q4HR PRN Naloxone [Narcan] 0.4 mg IVP Q2MIN PRN Ondansetron [Zofran] 4 mg IVP Q8HR PRN OxyCODONE Immed Rel [Roxicodone] 5 mg PO Q6HR PRN Resuscitation Status: Active [RES] Routine Resuscitation Status: Full Code Comment: 02/25/17 21:43 COPD Discharge Checklist [RC] .atdischarge Cardiac monitoring [RC] .ONCE Head of bed elevation [RC] .ONCE Peripheral IV [RC] CONT Placement to Observation Routine Physician Instructions: Reason for Visit: Chest pain. Difficulty breathing. Is VTE Prophylaxis Indicated?: Yes Consult to Nurse Navigator [CONS] Routine Comment: 02/25/17 21:44 Bed rest [RC] .CONT Physician Instructions: Bed rest w/bedside commode [RC] .PRN Cardiac Monitoring Med/Surg [RC] .CONT Telemetry Reason: ACS/CP Continuous pulse oximetry [RC] CONT Comment: Measure intake and output [RC] QSHIFT Measure weight [RC] DAILY RT has an order or consult [RC] NOW 02/25/17 21:45 Oxygen via nasal cannula Nasal Cannula 2 lpm Comment: Titrate O2 to main O2 sat greater than: 92% Up with Assist Daily Physician Instructions: Comment: 02/25/17 21:48 Apply anti-embolic stockings [RC] .NOW Aspiration precautions [RC] .CONTINUOUS Falls precautions (Cecil-Armstrong [RC] ONCE Incentive Spirometry [RC] .6 TIMES PER HR WHILE AWAKE Activated Partial Thrombo Time [COAG] Stat Specimen: Send someone from the department to collect Comment: Complete Blood Count [HEME] Stat Specimen: Send someone from the department to collect Comment: Comprehensive Metabolic Panel Stat Specimen: Send someone from the department to collect Comment: Culture,Blood [BC] Stat Quantity: 2 Specimen: Send someone from the department to collect Comment: FARHEEN Source: Peripheral Venipuncture Specimen Description: Ionized Calcium Stat Specimen: Send someone from the department to collect Comment: Lactic Acid ([facility] Only) Stat Specimen: Send someone from the department to collect Comment: Legionella Antigen [RM] Routine Specimen: Send someone from the department to collect Comment: FARHEEN Source: Urine,Clean Catch Specimen Description: Prothrombin Time INR [COAG] Stat Specimen: Send someone from the department to collect Comment: Respiratory Infection Panel [MOLMIC] Stat Specimen: Send someone from the department to collect S. Pneumoniae Antigen [RM] Routine Specimen: Send someone from the department to collect Comment: FARHEEN Source: Urine,Clean Catch Specimen Description: Venous Blood Gas Stat Specimen: Send someone from the department to collect Comment: Viral Culture,Respiratory [RM] Stat Specimen: Send someone from the department to collect Comment: FARHEEN Source: Nasopharyngeal Specimen Description: Albuterol Neb [Proventil Neb] 2.5 mg IH Q2H PRN Naloxone [Narcan] 0.4 mg IVP Q2MIN PRN ECG 12 lead ECG [ECG] Stat Mode Of Transportation: Portable Reason For Exam: chest pain Order Doctor: Dada Rock Exam Performed At:: [facility] 02/25/17 21:50 Consult to Nurse Navigator [CONS] Routine Comment: B-Type Natriuretic Peptide Stat Specimen: Send someone from the department to collect Comment: 02/25/17 21:51 12 lead ECG assessment [RC] NOW 02/25/17 21:53 Culture,Sputum with Gram Stain [RM] Routine Specimen: Send someone from the department to collect Comment: FARHEEN Source: Sputum Specimen Description: 02/25/17 21:57 MRSA Surveillance Screen [MOLMIC] Stat Specimen: Send someone from the department to collect 02/25/17 22:00 Consult to Dialysis [CONS] ONCE Troponin I Q6H Specimen: Send someone from the department to collect Comment: Heparin 5,000 unit SQ Q8HCO 02/25/17 23:00 Ipratropium/Albuterol Neb [Duoneb] 3 ml IH QIDR 02/26/17 04:00 C-Reactive Protein AM 0400 Specimen: Send someone from the department to collect Comment: Cortisol,Random AM 0400 Specimen: Send someone from the department to collect Comment: Hgb A1C AM 0400 Specimen: Send someone from the department to collect Comment: Lipid Panel AM 0400 Specimen: Send someone from the department to collect Comment: Magnesium AM 0400 Specimen: Send someone from the department to collect Comment: Phosphorous AM 0400 Specimen: Send someone from the department to collect Comment: Thyroid Stimulating Hormone AM 0400 Specimen: Send someone from the department to collect Comment: Troponin I Q6H Specimen: Send someone from the department to collect Comment: 02/26/17 06:30 Omeprazole [PriLOSEC] 20 mg PO DAILY@0630 02/26/17 09:00 L. Acidophilus/Pectin, [place] [Acidophilus Probiotic Capsule] 1 each PO DAILY How will this medication be supplied?: Pharmacy to Subsitute Levothyroxine [Synthroid] 125 mcg PO DAILY Megestrol Acetate [Megace] 40 mg PO BID Renal Vitamin [Renal Caps Softgel] 1 mg PO DAILY 02/26/17 10:00 Troponin I Q6H Specimen: Send someone from the department to collect Comment: 02/26/17 21:00 Atorvastatin [Lipitor] 40 mg PO HS 02/26/17 Breakfast Renal Diet Diet Modifications: Vital Signs Temp Pulse Resp BP Pulse Ox 02/25/17 19:51 97.7 F 93 18 173/93 96 Assessments/Treatments Fall Precautions Acute Start: 02/25/17 19: 55 Freq: Q12H Status: Active Document 02/25/17 19:58 SMK (Rec: 02/25/17 20:10 [facility] [id number]) [facility] Fall Risk Assessment Tool Age less than60 years age (0 points) Fall History No falls within last 6 months (0 points) Elimination, Bowel, and Urine Incontinence (2 points) Medications: Includes HOME ADVISOR/opiates, On 2 or more high fall risk antivulsants, ant-hypertensives, drugs (5 points) diuretics, hypnotics, Patient Care Equipment: Any equipment One present (1 point) that tethers patient (e.g. IV infusions, chest tube, indwelling Mobility Requires assistance or supervision for transfer/ ambulation (2 points) Visual or auditory impairment affecting mobility (2 points) Cognition Lack of understanding of physical/cognitive limitations (4 points) Total Fall Risk Score 16 Fall Risk Category High Risk (Greater than 13) Fall Risk Interventions Low Risk Interventions Bed in lowest position Top side rails up x 2 Secure brake on bed Use properly fitting non-skid footwear Call light and frequently needed objects within reach Encourage patients/families to call for assistance when needed Fall education including risk assessment, injury risk and routine/ Inspect environment for safety and communication risk Supervise and assist with toileting/ADLs as needed Moderate Risk Interventions Institue fall-risk tooklit ( yellow flag, yellow non-skid socks and High Risk Interventions Remain with patient while toileting Hygiene activity Start: 02/25/17 19: 55 Freq: .PRN Status: Active Document 02/25/17 20:59 BAW (Rec: 02/25/17 21:00 BAW [id number]) Hygiene Bath Type Postpone Until Later 02/25/17 20:59 Nurse Note by Justice Durand A Caregiver with patient stated that patient likes a late morning bath and to postpone until later tomorrow morning Initialized on 02/25/17 20:59 - END OF NOTE IV-Invasive Line Management Start: 02/25/17 19: 55 Freq: Q4H Status: Active Document 02/25/17 19:58 JERRYK (Rec: 02/25/17 20:10 [facility] [id number]) IV/Invasive Line Assessment Right Hand Reason for Line Insertion/Rationale for Line Placed by EMS or Outside Insertion Facility Labs drawn from Line* No Initial Patient Assessment Start: 02/25/17 19: 55 Freq: .ONCE Status: Active Document 02/25/17 20:29 AKI (Rec: 02/25/17 20:37 [facility] [id number]) General Questions Date of Arrival on Unit 02/25/17 Time of Arrival on Unit 19:45 Admitted From Hospital to Hospital Transfer Chief Complaint CHEST PAIN Onset of Chief Complaint 02/25/17 History Provided By Family Member Orientation To Call Light Bed Phone TV Bathroom Smoking Policy Visiting Hours Procedures ID Bracelet On Emergency Contact Name BRENNAN SAMS Relationship to Patient MOTHER Emergency Contact Bands applied ID band Compromised extremity band Patient Health Portal Patient was provided information on Yes accessing patient portal Patient Requests Portal Enrollment No Reason No Portal Enrollment No Email Malnutrition Screening Tool (MST) Have You Recently Lost Weight Without No Trying Advance Directives Advance Directives No Advance Directives Information Provided Yes Advance Directives on File No Patient Rights Copy of Rights Given and Verbalizes Yes Understanding Tobacco Free Start: Copy of AHS Yes Statement Given and Patient Verbalizes Understanding Communication Ability Primary Language Zimbabwean Preferred Language Zimbabwean Organ Pipe Voicer Required No Ability to Follow Directions Poor/Unable Able to Read No Able to Write Yes Communication Tools None Learning Preferences One-on-One Instruction Hearing Ability Hard of Hearing Visual Assistive Devices None Pain Assessment Do You Have Any Ongoing (Chronic) Pain No Problems Educated on Pain Scale Yes Past Medical History Medical history arthritis atrial fibrillation COPD dialysis GERD hyperlipidemia hypertension osteoporosis renal disease thyroid disease other Additional medical history DOWN'S SYNDROME Female Surgical History sinus surgery other vascular surgery Psychiatric history other Smoking Status Never smoker Smokeless Tobacco Status No Alcohol use none Drug use none Occupational status disabled Current living situation With Family Activity level Wheelchair bound Recent Out of Country Travel Within the No Last 8 Weeks Exposure or Possible Exposure to Illness No During Travel Spiritual Needs Spiritual Referral None Psychosocial Over Age 75 and Lives Alone or Over Age No 80 Developmentally Disabled or History of Yes Mental Health Problems Diagnosis with Mcfp Need or No Terminal Implications Responsible for Care of Others No Financial Concerns No Suspected Abuse or Neglect No Suicidal or Homicidal Ideation No Social Service Consult Needed No Functional Assessment Employment Status Disabled Eating (Feeding) Ability Setup Bathing Ability Total Assistance Upper Body Dressing Ability Total Assistance Lower Body Dressing Ability Total Assistance Ambulation Ability Maximum Assistance Toileting Ability Total Assistance Bladder Dialysis Bowel Incontinent Normal Bowel Pattern Daily Date of Last Known Bowel Movement 02/25/17 Intake and Output, Strict Start: 02/25/17 19: 55 Freq: Q8H Status: Active Document 02/25/17 19:58 SMK (Rec: 02/25/17 20:10 [id number] Intake and Output Intake, Oral Amount 350 Meal SANDWICH,PUDDING,SODA Percent of Meal Consumed 100% Oral Supplements* None Measure weight Start: 02/25/17 19: 51 Freq: Status: Active Document 02/25/17 19:51 BAW (Rec: 02/25/17 19:54 BAW [facility]) Height and Weight Height 1.45 m Weight 41.73 kg Weight Measurement Method Built in [facility] Body Mass Index (BMI) 19.89 BMI Classification Normal Patient Belongings Start: 02/25/17 19: 55 Freq: .ONCE Status: Complete Document 02/25/17 19:58 SMK (Rec: 02/25/17 20:10 [id number] Patient Belongings Belongings With Patient on Admission No Patient Rounding Start: 02/25/17 19: 51 Freq: Q1H Status: Active Document 02/25/17 19:51 BAW (Rec: 02/25/17 19:54 BAW [facility]) Hourly Rounding Hourly Rounding Checked for Patient Positioning Patient Personal Items Placed Within Reach Hourly Rounding Completed Yes Patient Awake Is family present? Yes Equipment in Use Specialty Bed Safety Call Light Within Reach Bed Position Low Fall Precautions Phone Within Reach Bed Brake On Side Rails Up X2 Are the Floors Free From Trip Hazards? Yes Is the Room Free From Clutter? Yes Turn and Postion Bedrest No Turn Q 2HR No Patient Position Back Sepsis Screening Start: 02/25/17 19: 55 Freq: Q8H Status: Active Document 02/25/17 19:58 SMK (Rec: 02/25/17 20:10 [id number]) Sepsis Screening Sepsis Infection Criteria Present none Sepsis SIRS Criteria none Sepsis Screen No Definite Risk Sepsis Action Taken no action required Skin Risk Assessment Scale Start: 02/25/17 19: 55 Freq: Q12H Status: Active Document 02/25/17 19:58 SMK (Rec: 02/25/17 20:10 [facility] [id number]) Skin Risk Assessment Scale Moisture Risk Rarely Moist Sensory Perception Very Limited Activity Risk Chairfast Mobility Risk Very Limited Nutrition Risk Adequate Friction & Shear Risk No Apparent Problem Skin Risk Total Score (points) 16 System Review Start: 02/25/17 19: 55 Freq: Q8H Status: Active Document 02/25/17 20:15 [facility] (Rec: 02/25/17 20:25 [facility] [id number]) Pain Assessment Pain Present Reports No Pain Neurological Assessment Eye Opening Spontaneous Motor Obeys Commands Verbal Oriented Coma Scale Total 15 Neurologic Status Alert Patient Orientation Person Place Arousable To Name Speech Pattern Coherent Patient Behavior Appropriate Cooperative Mood Description Calm Elated Boiler Operator Strength Bilat Weak Push/Pull Bilat Weak Numbness/Tingling No Facial Symmetry Symmetrical Cardiovascular Assessment Signs and Symptoms None Heart Sounds S1 & S2 Murmur Pulse Rhythm Regular Jugular Vein Distention None Circulatory Tenderness Description Left Arm Right Radial 1+ Left Radial 1+ Weak Right Dorsalis Pedis 1+ Left Dorsalis Pedis 1+ AV Fistula or Graft AV Fistula AV Location Left Upper Arm Positive Bruit and Thrill Yes: ARM IS EDEMATOUS Left Arm Type Non-Pitting Mechanical Prophylaxis No Cardiac Monitoring Heart Rate 92 Monitoring Method Telemetry Rhythm Sinus Rhythm IN Interval 0.14 QRS Interval 0.19 QT Interval 0.30 Monitor Number [id number] Ditch Rider Limits 140/40 Strip placed in Chart Yes Monitor History Reviewed Yes Memory Cleared Yes Respiratory Assessment Respiratory Symptoms None Effort Normal for Patient Spontaneous Depth Shallow Respiratory Pattern Regular Chest Shape Normal Expansion Symmetrical All Lung Black Diminished Fine Crackles Right Upper Lobe Diminished Oxygen Delivery Method Nasal Cannula Oxygen Flow Rate (LPM) 2 FIO2 (%) 28 Cough Description None Sputum Amount None Gastrointestinal Assessment Abdomen Description Soft Non-Tender Round 3 or more loose stools, in less than 24 No hours Nausea/Vomiting Presence None All Four Quadrants Active Flatus Presence Present Genitourinary Assessment Genitourinary Symptoms Anuria Bladder Distention None Suprapubic Tenderness with Palpation No Comment: HD PT-DOES NOT VOID Integumentary Assessment Nail Bed Appearance Pale Temperature Warm Moisture Dry Turgor Normal Color Pale All Pressure Points Assessed Yes Evidence of Incision/Wounds/Breakdown No Mucous membranes moist, pink and intact Yes Oral Cavity Normal Musculoskeletal Assessment Musculoskeletal Symptoms Generalized Weakness Difficulty Walking Foot Drop Teaching Record Start: 02/25/17 19: 55 Freq: Q12H Status: Active Document 02/25/17 19:58 [facility] (Rec: 02/25/17 20:10 [facility] [id number]) Teaching Record: General Education Topics Medications Disease Process Hospital Environment Diet Exercise/Activity Equipment Use Precautions Response Verbalize understanding Methods Discussion Recipient Family Education Provided: Details ADMISSION,POC,MEDS,FALL/SAFETY PRECAUTIONS,DIET,TELE, COMPROMISED EXTREMITY PRECAUTIONS Thrombosis Risk Factor Assessment Start: 02/25/17 19: 55 Freq: .ONCE Status: Complete Document 02/25/17 19:58 [facility] (Rec: 02/25/17 20:10 [id number]) Thrombosis Risk Factor Assessment Each Factor Represents 1 point Age 41 - 59 years Medical patient currently at bed rest Other Risk Factors Yes Other congenital or acquired No thrombophilia - If yes, enter Type in comment Total Risk Factor Score 3 Risk Level Higher Risk Vital Signs Assessment Start: 02/25/17 19: 51 Freq: Status: Active Document 02/25/17 19:51 BAW (Rec: 02/25/17 19:54 BAW [id number]) Vital Signs with MEWS Temperature (97.6 F-99.6 F) 97.7 F Temperature Source Oral Pulse Rate 93 Respiratory Rate 18 Pulse Oximetry 96 Oxygen Delivery Nasal Cannula Blood Pressure 173/93 Blood Pressure Location Right Arm Source Automatic Cuff Position Supine Neuro Status *recalled from last Alert documentation MEWS Score 1 Discharge Information Observation Discharge Date/Time: Observation Discharge Disposition: Observation Discharge Comment: Instructions: Stand-Alone Forms: Prescriptions: Visit Report - Forms: - Referrals:
[2017-02-25 22:35] LABS: Basophils # 0.1 K/mcL (0.0-0.2); Basophils % 1.2 %; Eosinophils # 0.1 K/mcL (0.0-0.6); Eosinophils % 1.9 %; Hematocrit 29.5 % (35.3-44.9); Hemoglobin 9.4 g/dL (11.5-15.4); Immature Granulocytes % 0.5 % (0-4); Lymphocytes # 0.7 K/mcL (0.6-4.6); Lymphocytes % 15.4 %; Mean Corpuscular HGB Conc 31.9 g/dL (31.6-35.5); Mean Corpuscular Hemoglobin 33.8 pg (28.0-33.3); Mean Corpuscular Volume 106.1 fL (83.0-100.0); Mean Platelet Volume 11.7 fL (9.4-12.4); Monocytes # 0.3 K/mcL (0.0-1.3); Monocytes % 6.3 %; Neutrophils # 3.2 K/mcL (1.6-8.9); Platelet Count 137 K/mcL (140-400); Red Blood Count 2.78 M/mcL (3.82-4.97); Red Cell Distribution Width 16.5 % (11.5-14.5); Segmented Neutrophils % 74.7 %
[2017-02-25 22:36] LABS: VBG HCO3 24.7 mEq/L (21-27); VBG PH 7.41 pH Units (7.32-7.42)
[2017-02-25 22:39] LABS: INR 1.2; Prothrombin Time 13.5 Seconds (9.4-12.1)
[2017-02-25 22:41] LABS: Activated Partial Thrombo Time 36.1 Seconds (26.0-36.0)
[2017-02-25 22:49] LABS: Albumin 2.2 g/dL (3.5-5.0); Albumin/Globulin Ratio 0.5 (1.1-2.2); Bilirubin,Total 0.7 mg/dL (0.2-1.2); Globulin 4.7 g/dL (2.4-3.5); Potassium 5.4 mEq/L (3.5-4.5); Total Protein 6.9 g/dL (6.0-8.3)
[2017-02-25] MEDS: *HR* Heparin 5,000 UNIT/ML VIAL SQ SCH (22:50)
[2017-02-25] MEDS: Ipratropium/Albuterol Neb 3 ML IH SCH (22:51)
[2017-02-26 01:00] LABS: Adenovirus Not Detected (Not Detect); Bordetella Pertussis Not Detected (Not Detect); Coronavirus 229E Not Detected (Not Detect); Coronavirus HKU1 Not Detected (Not Detect); Coronavirus NL63 Not Detected (Not Detect); Coronavirus OC43 Not Detected (Not Detect); Human Metapneumovirus Not Detected (Not Detect); Human Rhinovirus/Enterovirus Not Detected (Not Detect); Influenza A Subtype 2009 H1 Not Detected (Not Detect); Influenza A Untypeable Not Detected (Not Detect); Influenza B Not Detected (Not Detect); Parainfluenza Virus 1 Not Detected (Not Detect); Parainfluenza Virus 2 Not Detected (Not Detect); Parainfluenza Virus 3 Not Detected (Not Detect); Parainfluenza Virus 4 Not Detected (Not Detect); Respiratory Syncytial Virus Not Detected (Not Detect)
[2017-02-26 01:01] LABS: Chlamydophila pneumoniae Not Detected (Not Detect); Mycoplasma pneumoniae Not Detected (Not Detect)
[2017-02-26] MEDS: Ondansetron 4 MG/2 ML VIAL IVP PRN (01:35)
[2017-02-26] MEDS: Ipratropium/Albuterol Neb 3 ML IH SCH ×4 (04:12→22:44)
[2017-02-26] MEDS: *HR* Heparin 5,000 UNIT/ML VIAL SQ SCH ×3 (05:55→21:34)
--- NOTE | 2017-02-26 07:49 | Nephrology Consult Note ---
Date of Encounter: 02/26/17 Time of Encounter: 07:47 Assessment and Plan (1) ESRD (end stage renal disease) on dialysis Current Visit: Yes Status: Chronic Patient will undergo dialysis today. She did not receive her full dialysis treatment yesterday and she missed her dialysis to previous Saturday. She will be maintained on Aranesp for her anemia. Currently vital signs are stable. 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 Patient was at dialysis yesterday. She had acute onset of chest discomfort along with the acute elevation in her blood pressure. She was noted to be in some distress. She subsequently was taken off dialysis in to the emergency room for further evaluation. She subsequently been admitted to the hospital. Patient does have underlying mental disability as well as being hearing impaired and is difficult to get an accurate history and also difficult for her to express herself. She did not receive much dialysis yesterday. The patient's caregiver states this morning that the patient has not had any recurrent chest discomfort since being admitted to the hospital yesterday. Her vital signs are stable. Troponin is mildly elevated. BNP level is elevated. She does have a history of underlying coronary artery disease. Patient was recently hospitalized with GI bleeding. She underwent endoscopy back in December. She was noted to have internal hemorrhoids as well as esophageal candidiasis. Patient completed a 14 day course of Diflucan following hospital discharge. This was confirmed with the patient's caregiver. Currently the patient is alert. She is in no acute distress. She is not voicing any complaints. Past Med Surg Social Fam HX - Past Medical History Medical history: arthritis, atrial fibrillation, COPD, dialysis, GERD, hyperlipidemia, hypertension, osteoporosis, renal disease, thyroid disease, other Psychiatric history: other - Past Surgical History Surgical History: sinus surgery, other, vascular surgery - Social History Smoking Status: Never smoker Smokeless Tobacco Status: No Alcohol use: none Drug use: none Medications and Allergies Atorvastatin [Lipitor] 40 mg PO HS 08/09/15 [History] B Complex W-C No.20/Folic Acid [Nephrocaps Softgel] 1 mg PO DAILY 08/09/15 [ History] L. Acidophilus/Pectin, [place] [Acidophilus Probiotic Capsule] 1 each PO DAILY [History] Megestrol Acetate [Megace] 40 mg PO BID 08/09/15 [History] Omeprazole [PriLOSEC] 20 mg PO BID 08/09/15 [History] Diltiazem HCl 60 mg PO BID 12/26/16 [History] Levothyroxine [Synthroid] 125 mcg PO DAILY #30 tablet 12/30/16 [Rx] Allergies No Known Allergies Allergy (Verified 08/02/15 11:30) Review of Systems Constitutional: as per HPI Eyes: bilateral: blurred vision (patient denies), diplopia (patient denies) Nose, mouth and throat: no dizziness, no headache(s) Cardiovascular: chest pain, chest pain at rest, dyspnea on exertion Respiratory: no cough, no dyspnea Gastrointestinal: as per HPI Musculoskeletal: no muscle weakness, no numbness Integumentary: rash Neurological: as per HPI Psychiatric: no depression, no difficulty concentrating Endocrine: as per HPI Exam - Vital Signs Vital signs: Initial Vital Signs Temp Pulse Resp BP Pulse Ox 97.7 F 93 18 173/93 96 02/25/17 19:51 02/25/17 19:51 02/25/17 19:51 02/25/17 19:51 02/25/17 19:51 Vital Signs - Last 8 Hours Temp Pulse Resp BP Pulse Ox 02/26/17 07:27 98.0 F 84 17 145/76 97 02/26/17 04:45 97.5 F L 87 18 135/77 96 02/26/17 04:12 18 97 02/26/17 00:22 98.1 F 89 18 154/81 93 Intake and Output 02/25/17 02/25/17 02/26/17 15:59 23:59 07:59 Intake Total 350 / 350 Balance 350 / 350 Intake: Oral 350 / 350 Other: Meal SANDWICH,PUDDING,SODA Percent of Meal Consumed 100% Weight 41.73 kg - General Appearance Exam: Patient is alert. She is in no acute distress. Neck is supple. Lungs clear to auscultation. Heart regular rate and rhythm with 2/6 ejection murmur. Abdomen shows normal bowel sounds. No bruits masses organomegaly or tenderness. Lower extremity show trace lower extremity swelling. She has a functioning AV access in the left arm. She has a erythematous rash of the left arm. Results - Lab Results 02/25/17 22:27 02/25/17 22:27 Most recent lab results Calcium 8.0 mg/dL (8.6-10.8) L 02/25/17 22:27 Consult Discharge Plan - Plan Referrals: Yesenia Parra MD [Primary Care Provider] -
[2017-02-26] MEDS ORDERED: 0.9 % Sodium Chloride 250 ML IVC PRN (07:51)
[2017-02-26 08:00] LABS: Hemoglobin A1C 4.1 %
[2017-02-26 08:01] LABS: Chol/HDL Ratio 4.6 (0-4.9); Magnesium 1.7 mg/dL (1.6-2.6); Phosphorous 6.9 mg/dL (2.3-4.7)
[2017-02-26 08:23] LABS: Thyroid Stimulating Hormone 22.775 mcIU/mL (0.350-4.840)
[2017-02-26] MEDS: Lactobacillus 1 EACH CAP.SPRINK PO SCH (08:48)
[2017-02-26] MEDS: Renal Vitamin 1 MG CAPSULE PO SCH (08:48)
[2017-02-26 11:29] LABS: Hepatitis B Surface Antigen Nonreactive (Nonreactive)
[2017-02-26] MEDS ORDERED: *HR* OxyCODONE Immed Rel 5 MG TABLET PO PRN (12:02)
[2017-02-26 12:07] LABS: Triiodothyronine (T3) Free 1.25 pg/mL (1.71-3.71)
[2017-02-26] MEDS: Metoprolol XL (24 HR) Succ 50 MG TAB.ER.24H PO SCH (13:45)
[2017-02-26] MEDS: dilTIAZem HCl 60 MG TABLET PO SCH ×2 (13:45→21:34)
--- NOTE | 2017-02-26 17:36 | Electrocardiograph Report ---
[address] [place], [place] [address] Test Date: 2017-02-25 Pat Name: Kika Sams Department: 112 Room: 2A22 Gender: F Cook Fruit: CLAUDE : 1965 Requested By: Dada Rock Order Number: [id number] Reading MD: Tierra Richards Measurements Intervals [place] Rate: 88 P: 50 [place]: 135 QRS: -44 QRSD: 89 T: 172 QT: 399 QTc: 445 Interpretive Statements SINUS RHYTHM MARKED LEFT AXIS DEVIATION ST DEVIATION AND MODERATE T-WAVE ABNORMALITY, CONSIDER LATERAL ISCHEMIA Electronically Signed On 02-26-2017 17:35:21 EDT by Tierra Richards
[2017-02-27] MEDS: *HR* Heparin 5,000 UNIT/ML VIAL SQ SCH ×2 (05:22→14:18)
[2017-02-27] MEDS: Ipratropium/Albuterol Neb 3 ML IH SCH ×3 (05:47→15:41)
[2017-02-27 07:37] VITALS: BP 108/63
[2017-02-27] MEDS ORDERED: 0.9 % Sodium Chloride 250 ML IVC PRN (08:01)
--- NOTE | 2017-02-27 08:01 | Nephrology Progress Note ---
Date of Encounter: 02/27/17 Time of Encounter: 07:59 - Assessment and Plan (1) ESRD (end stage renal disease) on dialysis Current Visit: Yes Status: Chronic We will have the patient undergo dialysis again today to get her back on her usual schedule. We are going to adjust her phosphorus binders. It may be worthwhile to have her undergo an adenosine stress test just to be sure she is not developed any coronary disease since 2012. 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 Troponins remain stable. She is alert oriented and in no acute distress today. She is not complaining of chest pain. Patient had a cardiac catheter back in 2012 which showed normal coronaries. Objective - Vital Signs Vital signs: Vital Signs Temp Pulse Resp BP Pulse Ox 02/27/17 07:37 97.6 F 73 18 108/63 94 02/27/17 05:48 16 95 02/27/17 04:58 97.9 F 69 18 122/66 92 02/27/17 01:14 97.7 F 81 18 121/70 92 02/26/17 22:45 16 98 02/26/17 19:56 97.9 F 79 18 114/61 94 02/26/17 15:13 16 96 02/26/17 13:30 98.0 F 18 142/95 02/26/17 13:15 136/93 02/26/17 13:00 115/79 02/26/17 12:45 122/87 02/26/17 12:30 122/87 02/26/17 12:15 140/84 02/26/17 12:00 126/79 02/26/17 11:45 119/72 02/26/17 11:30 98.0 F 16 142/71 02/26/17 10:23 14 96 02/26/17 10:03 145/76 02/26/17 09:00 97 Intake and Output 02/26/17 02/26/17 02/27/17 15:59 23:59 07:59 Intake Total 600 / 600 Output Total 2300 / 2300 Balance -1700 / -1700 Intake: Intake, Rinseback and 600 / 600 Flushes Output: Total Dialysis Output 2300 / 2300 Other: Stool Size Small Stool Consistency soft Stool Characteristics Normal for Patient Stool Color Brown Weight 41.692 kg Hemodialysis Net Fluid 1719 Removed (mL) Patient Weight 02/27/17 23:59 Weight 41.692 kg - General Appearance Exam: Patient is alert and oriented. She is in no acute distress. Lungs clear to auscultation. Heart regular rate and rhythm. Abdomen is benign. There is no peripheral edema. There is an AV graft in the left arm. - Lab 02/25/17 22:27 02/25/17 22:27 Most recent lab results Calcium 8.0 mg/dL (8.6-10.8) L 02/25/17 22:27 Phosphorus 6.9 mg/dL (2.3-4.7) H 02/26/17 07:32 Magnesium 1.7 mg/dL (1.6-2.6) 02/26/17 07:32 - VTE Documentation of Mechanical Device: Intermittent pneumatic compression device Consult Discharge Plan - Plan Referrals: Yesenia Parra MD [Primary Care Provider] - ([place] office will call patient for follow up appts.)
[2017-02-27] MEDS: Lactobacillus 1 EACH CAP.SPRINK PO SCH (09:27)
[2017-02-27] MEDS: Metoprolol XL (24 HR) Succ 50 MG TAB.ER.24H PO SCH (09:28)
[2017-02-27] MEDS: Renal Vitamin 1 MG CAPSULE PO SCH (09:28)
[2017-02-27] MEDS: dilTIAZem HCl 60 MG TABLET PO SCH (09:28)
[2017-02-27] MEDS: Ondansetron 4 MG/2 ML VIAL IVP PRN (13:14)
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
--- NOTE | 2017-02-27 16:01 | Internal Med Progress Note ---
Date of Encounter: 02/26/17 Time of Encounter: 15:00 - Assessment and plan (1) Abdominal pain Current Visit: Yes Status: Acute Assessment and plan: Likely related to volume overload and missed hemodialysis sessions. Currently improved. Supportive care. Qualifiers: Abdominal location: unspecified location Qualified Code(s): R10.9 - Unspecified abdominal pain (2) Acute chest wall pain Current Visit: Yes Status: Acute Assessment and plan: Improved now. Likely related to volume overload due to missed hemodialysis sessions. Telemetry monitoring remains uneventful. Serial troponins remain adynamic with very mild elevation, likely related to ESRD and volume ordered, less likely ACS. Echocardiogram from last month shows preserved EF. (3) Essential hypertension Current Visit: Yes Status: Chronic Assessment and plan: Blood pressure well controlled. Continue home medications for now. (4) Hypothyroidism Current Visit: Yes Status: Chronic Assessment and plan: Continue home dose of levothyroxine. This may need to be increased as patient is noted to have extremely elevated TSH; check free T4 and free T3; Qualifiers: Hypothyroidism type: unspecified Qualified Code(s): E03.9 - Hypothyroidism , unspecified (5) ESRD (end stage renal disease) on dialysis Current Visit: Yes Status: Chronic Assessment and plan: Nephrology consulted. Patient received hemodialysis session today with significant symptomatic improvement. Scheduled for regular session of hemodialysis tomorrow. Continue phosphate binders and multivitamins. Supportive care and supplemental oxygen. 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 (8) Candidiasis of esophagus Current Visit: Yes Status: Chronic - Subjective Interval history: Patient has cerebral palsy and unable to answer much. She does report that she feels good. History obtained from mother at bedside. Improved chest and abdominal pain, improved shortness of breath. Returned from hemodialysis. - Constitutional Vitals: Temp Pulse Resp BP Pulse Ox 97.6 F 73 18 108/63 94 02/27/17 07:37 02/27/17 07:37 02/27/17 07:37 02/27/17 07:37 02/27/17 07:37 General appearance: Present: A&O X 1 - Respiratory Respiratory exam: Present: rales (Mild bibasal crackles). Absent: accessory muscle use, rhonchi, wheezes - Cardiovascular Cardiovascular exam: Present: RRR, +S1, +S2. Absent: diastolic murmur, gallop, rubs, systolic murmur - GI/Abdominal GI/Abdominal exam: Present: normal bowel sounds, soft, no peritoneal signs. Absent: distended, tenderness - Extremities Exam Extremities exam: Present: normal inspection (Bilateral lower extremity atrophy) , warm, radial pulses palpable and symetrical. Absent: calf tenderness, cyanotic, pedal edema Internal Medicine: Result - Labs CBC & Chem 7: 02/25/17 22:27 02/25/17 22:27 - ABG Interpretation ABG results: PT/INR, D-dimer PT 13.5 Seconds (9.4-12.1) H 02/25/17 22:27 - VTE Documentation of Mechanical Device: Intermittent pneumatic compression device Consult Discharge Plan - Plan Instructions: Levothyroxine (By mouth), Sevelamer (By mouth), Hypothyroidism ( DC) Additional Instructions: F/up with HD 3 times/week- MWF Referrals: Yesenia Parra MD [Primary Care Provider] - ([place] office will call patient for follow up appts.) Prescriptions: Levothyroxine [Synthroid] 175 mcg PO DAILY #30 tablet
== END 2017-02-27 16:15 | disposition home or self-care (01) ==
LOC: 2ANU → SUATTDRO 19:16
PROVIDERS: ADMIT Internal Medicine; ATTEND Internal Medicine